=== PATIENT | male | born 1945 | race Caucasian/White ===

== ENCOUNTER 2021-07-16 09:12 | Outpatient (CLI) | payer MEDICARE | END 2021-07-16 09:13 | disposition critical access hospital (66) | LOC: EMS 09:12 | DX: R40.0 Somnolence (principal); R41.0 Disorientation, unspecified; I48.91 Unspecified atrial fibrillation | CPT/HCPCS: A0425; A0429 ==

== ENCOUNTER 2021-07-16 09:29 | Emergency (ER) | payer MEDICARE ==
[2021-07-16 10:27] LABS: BASOPHILS % (AUTO) 0.2 %; EOSINOPHILS % (AUTO) 0.1 %; HCT - HEMATOCRIT 48.1 % (42.0-52.0); HGB - HEMOGLOBIN 16.4 g/dL (14.0-18.0); LYMPHOCYTES # (AUTO) 0.6 10^3/uL (1.5-3.5); LYMPHOCYTES % (AUTO) 3.4 %; MEAN CORPUSCULAR HGB CONC 34.1 g/dL (32.0-36.0); MEAN CORPUSCULAR VOLUME 93.8 fL (80.0-94.0); MEAN PLATELET VOLUME 12.6 fL (7.4-11.4); MONOCYTES # (AUTO) 1.9 10^3/uL (0.0-1.0); MONOCYTES % (AUTO) 10.9 %; NEUTROPHILS # (AUTO) 14.9 10^3/uL (1.5-6.6); NEUTROPHILS % (AUTO) 84.9 %; PLT - PLATELET COUNT 128 10^3/uL (130-450); RED BLOOD COUNT 5.13 10^6/uL (4.70-6.10); RED CELL DISTRIBUTION WIDTH 12.9 % (12.0-15.0); WHITE BLOOD COUNT 17.6 x10^3/uL (4.8-10.8)
[2021-07-16 10:29] LABS: SLIDE REVIEW? Indicated
--- NOTE | 2021-07-16 10:33 | ED Physician Documentation ---
History of Present Illness - Stated complaint Stated Complaint: FEELING SICK - Chief complaint Chief Complaint: General - History obtained from History obtained from: Patient, EMS - History of Present Illness Pain level max: 0 Pain level now: 0 - Additonal information Additional information: Patient is a 76-year-old male who states that he has no complaints and does not know why he is in the emergency department. EMS states that the family states that he was weaker than usual today and had difficulty standing up. They brought him in for evaluation. Patient does have dementia per family. No other history is available at this time. Review of Systems Unable to obtain: Dementia PD PAST MEDICAL HISTORY - Past Medical History Past Medical History: Yes Neuro: Dementia - Present Medications Home Medications: Ambulatory Orders Medication Instructions Recorded Confirmed Apixaban [Eliquis] 1 tab PO DAILY 07/16/21 07/16/21 Calcium Citrate/Vitamin D3 1 tab PO DAILY 07/16/21 07/16/21 [Calcium Cit 200 mg-D3 125 Unit] Furosemide [Lasix] 1 tab PO DAILY 07/16/21 07/16/21 Garlic 1 tab PO DAILY 07/16/21 07/16/21 Glucos Sul 2Kcl/MSM/Chond/C/Mn 1 cap PO DAILY 07/16/21 07/16/21 [Glucosamine Chondroitin Cap] Lecithin 1 pkg PO DAILY 07/16/21 07/16/21 Magnesium 1 tab PO DAILY 07/16/21 07/16/21 Metoprolol Tartrate [Lopressor] 1 tab PO DAILY 07/16/21 07/16/21 Potassium Chloride [Micro-K] 1 cap PO DAILY 07/16/21 07/16/21 Selenium [Selenious Acid] 1 vial PO DAILY 07/16/21 07/16/21 cephALEXin [Keflex] 500 mg PO Q6H #20 cap 07/16/21 flaxseed oiL [Flaxseed Oil] 1 cap PO DAILY 07/16/21 07/16/21 - Allergies Allergies/Adverse Reactions: Allergies Allergy/AdvReac Type Severity Reaction Status Date / Time Unable to Assess Allergy Verified 07/16/21 09:52 - Living Situation Living Situation: reports: With family Living Arrangement: reports: At home - Social History Does the pt smoke?: No Does the pt have substance abuse?: No PD ED PE NORMAL - Vitals Vital signs reviewed: Yes - General General: No acute distress, Well developed/nourished, Other (Alert, pleasant. Confused) - HEENT HEENT: Moist mucous membranes - Neck Neck: Supple, no meningeal sign - Cardiac Cardiac: RRR - Respiratory Respiratory: No respiratory distress, Clear bilaterally - Abdomen Abdomen: Soft, Non tender, Non distended - Back Back: No CVA TTP, No spinal TTP - Derm Derm: Warm and dry - Extremities Extremities: No edema, No calf tenderness / cord - Neuro Neuro: Other (alert) Results - Vitals Vitals: Vital Signs - 24 hr 07/16/21 07/16/21 07/16/21 09:46 11:45 13:28 Temperature 37.2 C Heart Rate 110 H 86 104 H Respiratory 17 20 18 Rate Blood Pressure 158/102 H 152/101 H 147/92 H O2 Saturation 98 98 96 07/16/21 15:07 Temperature Heart Rate 91 Respiratory 16 Rate Blood Pressure 144/95 H O2 Saturation 97 Oxygen O2 Source Room air - EKG (time done) 1100 Rate: Rate (enter#) (98) Rhythm: Atrial fibrillation Lejunior: Normal QRS: Normal Ischemia: Non specific changes - Labs Labs: Laboratory Tests 07/16/21 07/16/21 07/16/21 10:18 10:18 10:18 WBC 17.6 H RBC 5.13 Hgb 16.4 Hct 48.1 MCV 93.8 MCH 32.0 H MCHC 34.1 RDW 12.9 Plt Count 128 L MPV 12.6 H Neut # (Auto) 14.9 H Lymph # (Auto) 0.[address] [place] # (Auto) 1.9 H Eos # (Auto) 0.0 Baso # (Auto) 0.0 Absolute Nucleated RBC 0.00 Band Neuts % (Manual) Not Reportable Abnorm Lymph % (Manual) Not Reportable Nucleated RBC % 0.0 Neutrophils # (Manual) Not Reportable Lymphocytes # (Manual) Not Reportable Monocytes # (Manual) Not Reportable Eosinophils # (Manual) Not Reportable Basophils # (Manual) Not Reportable Differential Comment MANUAL=AUTO DIFF Manual Slide Review Indicated WBC Morphology NORMAL APPEARANCE Platelet Estimate DECREASED (<130,000) Platelet Morphology NORMAL APPEARANCE RBC Morph Micro Appear NORMAL APPEARANCE Sodium 137 Potassium 3.7 Chloride 103 Carbon Dioxide 25 Anion Gap 9.0 BUN 16 Creatinine 0.9 Estimated GFR (MDRD) 82 L Glucose 114 H Lactic Acid Calcium 9.2 Total Bilirubin 1.8 H AST 18 ALT 23 Alkaline Phosphatase 73 Troponin I High Sens Total Protein 7.6 Albumin 3.9 Globulin 3.7 Albumin/Globulin Ratio 1.1 Lipase 19 L TSH 1.36 Urine Color Urine Clarity Urine pH Ur Specific Surveyor Urine Protein Urine Glucose (UA) Urine Ketones Urine Occult Blood Urine Nitrite Urine Bilirubin Urine Urobilinogen Ur Leukocyte Esterase Urine RBC Urine WBC Ur Squamous Epith Cells Urine Bacteria Urine Mucus Ur Microscopic Review Urine Culture Comments Nasal Adenovirus (PCR) Nasal B. parapertussis DNA (PCR) Nasal Coronavir 229E PCR Nasal Coronavir HKU1 PCR Nasal Coronavir NL63 PCR Nasal Coronavir OC43 PCR Nasal Enterovir/Rhinovir PCR Nasal Influenza B PCR Nasal Influenza A PCR Nasal Parainfluen 1 PCR Nasal Parainfluen 2 PCR Nasal Parainfluen 3 PCR Nasal Parainfluen 4 PCR Nasal RSV (PCR) Nasal B.pertussis DNA PCR Nasal C.pneumoniae (PCR) Yobani Human Metapneumo PCR Nasal M.pneumoniae (PCR) Nasal SARS-CoV-2 (PCR) Salicylates < 6.0 Urine Opiates Screen Ur Oxycodone Screen Urine Methadone Screen Ur Propoxyphene Screen Acetaminophen < 10 L Ur Barbiturates Screen Ur Tricyclics Screen Ur Phencyclidine Scrn Ur Amphetamine Screen U Methamphetamines Scrn U Benzodiazepines Scrn Urine Cocaine Screen U Cannabinoids Screen Ethyl Alcohol < 5.0 07/16/21 07/16/21 07/16/21 10:18 11:29 11:50 WBC RBC Hgb Hct MCV MCH MCHC RDW Plt Count MPV Neut # (Auto) Lymph # (Auto) [place] # (Auto) Eos # (Auto) Baso # (Auto) Absolute Nucleated RBC Band Neuts % (Manual) Abnorm Lymph % (Manual) Nucleated RBC % Neutrophils # (Manual) Lymphocytes # (Manual) Monocytes # (Manual) Eosinophils # (Manual) Basophils # (Manual) Differential Comment Manual Slide Review WBC Morphology Platelet Estimate Platelet Morphology RBC Morph Micro Appear Sodium Potassium Chloride Carbon Dioxide Anion Gap BUN Creatinine Estimated GFR (MDRD) Glucose Lactic Acid 1.1 Calcium Total Bilirubin AST ALT Alkaline Phosphatase Troponin I High Sens 9.8 Total Protein Albumin Globulin Albumin/Globulin Ratio Lipase TSH Urine Color Urine Clarity Urine pH Ur Specific Surveyor Urine Protein Urine Glucose (UA) Urine Ketones Urine Occult Blood Urine Nitrite Urine Bilirubin Urine Urobilinogen Ur Leukocyte Esterase Urine RBC Urine WBC Ur Squamous Epith Cells Urine Bacteria Urine Mucus Ur Microscopic Review Urine Culture Comments Nasal Adenovirus (PCR) NOT DETECTED Nasal B. parapertussis DNA (PCR) NOT DETECTED Nasal Coronavir 229E PCR NOT DETECTED Nasal Coronavir HKU1 PCR NOT DETECTED Nasal Coronavir NL63 PCR NOT DETECTED Nasal Coronavir OC43 PCR NOT DETECTED Nasal Enterovir/Rhinovir PCR NOT DETECTED Nasal Influenza B PCR NOT DETECTED Nasal Influenza A PCR NOT DETECTED Nasal Parainfluen 1 PCR NOT DETECTED Nasal Parainfluen 2 PCR NOT DETECTED Nasal Parainfluen 3 PCR NOT DETECTED Nasal Parainfluen 4 PCR NOT DETECTED Nasal RSV (PCR) NOT DETECTED Nasal B.pertussis DNA PCR NOT DETECTED Nasal C.pneumoniae (PCR) NOT DETECTED Yobani Human Metapneumo PCR NOT DETECTED Nasal M.pneumoniae (PCR) NOT DETECTED Nasal SARS-CoV-2 (PCR) NOT DETECTED Salicylates Urine Opiates Screen Ur Oxycodone Screen Urine Methadone Screen Ur Propoxyphene Screen Acetaminophen Ur Barbiturates Screen Ur Tricyclics Screen Ur Phencyclidine Scrn Ur Amphetamine Screen U Methamphetamines Scrn U Benzodiazepines Scrn Urine Cocaine Screen U Cannabinoids Screen Ethyl Alcohol 07/16/21 12:02 WBC RBC Hgb Hct MCV MCH MCHC RDW Plt Count MPV Neut # (Auto) Lymph # (Auto) [place] # (Auto) Eos # (Auto) Baso # (Auto) Absolute Nucleated RBC Band Neuts % (Manual) Abnorm Lymph % (Manual) Nucleated RBC % Neutrophils # (Manual) Lymphocytes # (Manual) Monocytes # (Manual) Eosinophils # (Manual) Basophils # (Manual) Differential Comment Manual Slide Review WBC Morphology Platelet Estimate Platelet Morphology RBC Morph Micro Appear Sodium Potassium Chloride Carbon Dioxide Anion Gap BUN Creatinine Estimated GFR (MDRD) Glucose Lactic Acid Calcium Total Bilirubin AST ALT Alkaline Phosphatase Troponin I High Sens Total Protein Albumin Globulin Albumin/Globulin Ratio Lipase TSH Urine Color YELLOW Urine Clarity CLEAR Urine pH 6.5 Ur Specific Surveyor 1.020 Urine Protein NEGATIVE Urine Glucose (UA) NEGATIVE Urine Ketones TRACE Urine Occult Blood SMALL H Urine Nitrite NEGATIVE Urine Bilirubin NEGATIVE Urine Urobilinogen 1 (NORMAL) Ur Leukocyte Esterase NEGATIVE Urine RBC 0-5 Urine WBC 0-3 Ur Squamous Epith Cells RARE Squamous Urine Bacteria Rare Urine Mucus Few Strands Ur Microscopic Review INDICATED Urine Culture Comments NOT INDICATED Nasal Adenovirus (PCR) Nasal B. parapertussis DNA (PCR) Nasal Coronavir 229E PCR Nasal Coronavir HKU1 PCR Nasal Coronavir NL63 PCR Nasal Coronavir OC43 PCR Nasal Enterovir/Rhinovir PCR Nasal Influenza B PCR Nasal Influenza A PCR Nasal Parainfluen 1 PCR Nasal Parainfluen 2 PCR Nasal Parainfluen 3 PCR Nasal Parainfluen 4 PCR Nasal RSV (PCR) Nasal B.pertussis DNA PCR Nasal C.pneumoniae (PCR) Yobani Human Metapneumo PCR Nasal M.pneumoniae (PCR) Nasal SARS-CoV-2 (PCR) Salicylates Urine Opiates Screen NEGATIVE Ur Oxycodone Screen NEGATIVE Urine Methadone Screen NEGATIVE Ur Propoxyphene Screen NEGATIVE Acetaminophen Ur Barbiturates Screen NEGATIVE Ur Tricyclics Screen NEGATIVE Ur Phencyclidine Scrn NEGATIVE Ur Amphetamine Screen NEGATIVE U Methamphetamines Scrn NEGATIVE U Benzodiazepines Scrn NEGATIVE Urine Cocaine Screen NEGATIVE U Cannabinoids Screen NEGATIVE Ethyl Alcohol - Rads (name of study) head CT Radiology: Final report received, EMP read contemporaneously, See rad report (No acute abnormality) cxr Radiology: Final report received, EMP read contemporaneously, See rad report (Mild or early pneumonia each lung base, without pleural effusion or central mass. ) CT abd/pelvis Radiology: Final report received, EMP read contemporaneously, See rad report (no acute abnormality) PD MEDICAL DECISION MAKING - ED course Complexity details: reviewed results, re-evaluated patient, considered differential, d/w patient, d/w family ED course: 76-year-old male with a UTI. We will treat for this. He does have dementia. He is ambulating without difficulty here in the emergency department. Utilizing a walker. No acute findings on laboratory testing other than mild thrombocytopenia and a slight leukocytosis. No evidence of sepsis. No acute findings on chest x-ray, head CT or CT abdomen pelvis. Possible early pneumonia on chest x-ray, though was recently apparently treated for this and CT does not appear consistent with pneumonia. Clinically he is not coughing or hypoxic. More likely that his symptoms are secondary to UTI. Patient and family counseled regarding signs and symptoms for which I believe and urgent re- evaluation would be necessary. Patient with good understanding of and agreement to plan and is comfortable going home at this time This document was made in part using voice recognition software. While efforts are made to proofread this document, sound alike and grammatical errors may occur. Departure - Departure Disposition: Home, Self Care Clinical Impression: UTI (urinary tract infection) Qualifiers: Urinary tract infection type: acute cystitis Hematuria presence: without hematuria Qualified Code(s): N30.00 - Acute cystitis without hematuria Condition: Good Instructions: ED UTI Cystitis Male Follow-Up: your,doctor in 1 week [Other] Prescriptions: cephALEXin [Keflex] 500 mg PO Q6H #20 cap Comments: Take all antibiotics until gone. Follow up with your doctor for further care. Discharge Date/Time: 07/16/21 15:30
[2021-07-16 10:43] LABS: ACETAMINOPHEN < 10 ug/mL (10-30); ALBUMIN 3.9 g/dL (3.2-5.5); ALBUMIN/GLOBULIN RATIO 1.1 (1.0-2.2); ALKALINE PHOSPHATASE 73 IU/L (42-121); ALT ALANINE AMINOTRANSFERASE 23 IU/L (10-60); AST ASPARTATE AMINOTRANSFERASE 18 IU/L (10-42); BILIRUBIN,TOTAL 1.8 mg/dL (0.2-1.0); BUN - BLOOD UREA NITROGEN 16 mg/dL (6-20); CALCIUM 9.2 mg/dL (8.5-10.3); CARBON DIOXIDE - CO2 25 mmol/L (21-32); CHLORIDE 103 mmol/L (101-111); CREATININE 0.9 mg/dL (0.6-1.2); ETOH - ETHANOL < 5.0 mg/dL; GFR - MDRD 82 (>89); GLUCOSE 114 mg/dL (70-100); LIPASE 19 U/L (22-51); POTASSIUM 3.7 mmol/L (3.5-5.0); SALICYLATE < 6.0 mg/dL; SODIUM 137 mmol/L (135-145); TOTAL PROTEIN 7.6 g/dL (6.7-8.2)
--- NOTE | 2021-07-16 10:46 | CT Report ---
PROCEDURE: HEAD WO INDICATIONS: altered mental status, pt on eliquis TECHNIQUE: Noncontrast 4.5 mm thick angled axial sections acquired from the foramen magnum to the vertex. For r adiation dose reduction, the following was used: automated exposure control, adjustment of mA and/or kV according to patient size. COMPARISON: None. FINDINGS: Image quality: There is streak artifact seen through the skull base. CSF spaces: Basal cisterns are patent. No extra-axial fluid collections. Ventricles are normal in size and shape. Brain: No midline shift. No intracranial masses or hemorrhage. Edwards-white matter interface is norm al. Age-appropriate brain parenchymal volume loss and chronic small vessel ischemic change can be se en. Skull and face: Calvarium and visualized facial bones are intact, without suspicious lesions. Sinuses: Visualized sinuses and mastoids are clear. IMPRESSION: No intracranial hemorrhage is seen. No significant intracranial abnormality is seen. Age-appropriate brain parenchymal volume loss and chronic small vessel ischemic change can be seen. Reviewed by: Santosh Mcelroy MD on 07/16/2021 9:44 AM [facility] Approved by: Santosh Mcelroy MD on 07/16/2021 9:44 AM [facility] Station ID: [id number]
[2021-07-16 11:10] LABS: DIFFERENTIAL COMMENT MANUAL=AUTO DIFF; PLATELET ESTIMATE, MANUAL DECREASED (<130,000) (NORMAL); PLATELET MORPHOLOGY NORMAL APPEARANCE (NORMAL); RBC MORPHOLOGY (MULTIPLE) NORMAL APPEARANCE (NORMAL); WBC MORPHOLOGY (MULTIPLE) NORMAL APPEARANCE (NORMAL)
[2021-07-16] MEDS ORDERED: SODIUM CHLORIDE 0.9% 1,000 ML IV STA (11:19)
--- NOTE | 2021-07-16 11:41 | XRAY Report ---
PROCEDURE: Chest 1 View X-Ray INDICATIONS: leukocytosis, altered TECHNIQUE: One view of the chest was acquired. COMPARISON: None FINDINGS: Surgical changes and devices: None. Lungs and pleura: No pleural effusions or pneumothorax. Lungs are abnormal with what appears to be a mild pneumonia pattern at the right lung base and there is also retrocardiac left lower lobe mild o r early pneumonia.. Mediastinum: Mediastinal contours appear normal. Heart size is normal. Bones and chest wall: No suspicious bony lesions. Overlying soft tissues appear unremarkable. IMPRESSION: Mild or early pneumonia each lung base, without pleural effusion or central mass. Reviewed by: Gordon Steinberg MD on 07/16/2021 11:40 AM PDT Approved by: Gordon Steinberg MD on 07/16/2021 11:40 AM PDT Station ID: [id number]
[2021-07-16 12:10] LABS: MUDS CUTOFF CONCENTRATIONS CUTOFF CONC BELOW:
[2021-07-16 12:12] LABS: BILIRUBIN,URINE NEGATIVE (NEGATIVE); GLUCOSE, URINE (UA) NEGATIVE (NEGATIVE); KETONES,URINE (UA) TRACE mg/dL (NEGATIVE); LEUKOCYTE ESTERASE, URINE NEGATIVE (NEGATIVE); NITRITE,URINE NEGATIVE (NEGATIVE); OCCULT BLOOD,URINE SMALL (NEGATIVE); PH,URINE 6.5 PH (5.0-7.5); PROTEIN,URINE NEGATIVE (NEGATIVE); UROBILINOGEN,URINE 1 (NORMAL) E.U./dL (NORMAL)
[2021-07-16 12:28] LABS: AMPHETAMINE SCREEN,URINE NEGATIVE (NEGATIVE); BARBITURATE SCREEN,UR NEGATIVE (NEGATIVE); BENZODIAZEPINES SCREEN, URINE NEGATIVE (NEGATIVE); COCAINE SCREEN URINE NEGATIVE (NEGATIVE); METHADONE SCREEN, URINE NEGATIVE (NEGATIVE); METHAMPHETAMINES SCREEN, URINE NEGATIVE (NEGATIVE); OPIATE SCREEN, URINE NEGATIVE (NEGATIVE); OXYCODONE SCREEN, URINE NEGATIVE (NEGATIVE); PROPOXYPHENE SCREEN, URINE NEGATIVE (NEGATIVE); THC CANNABINOID SCREEN, URINE NEGATIVE (NEGATIVE); TRICYCLIC ANTIDEPRESSANT,URINE NEGATIVE (NEGATIVE)
[2021-07-16 12:34] LABS: CLARITY,URINE CLEAR (CLEAR); RBC,URINE 0-5 /HPF (0-5); WBC,URINE 0-3 /HPF (0-3)
[2021-07-16 12:35] LABS: BACTERIA,URINE Rare /HPF (None Seen); MUCUS,URINE Few Strands; SQUAMOUS EPITHELIAL CELL,UR RARE Squamous (<= Few)
[2021-07-16] MEDS ORDERED: IOPAMIDOL-300 50 ML VIAL ONE (12:43)
[2021-07-16 12:53] LABS: B. PARAPERTUSSIS- RESP PCR PAN NOT DETECTED; B. PERTUSSIS- RESP PCR PANEL NOT DETECTED; C. PNEUMONIAE- RESP PCR PANEL NOT DETECTED; CORONAVIRUS 229E-RESP PCR NOT DETECTED; CORONAVIRUS HKU1-RESP PCR NOT DETECTED; CORONAVIRUS NL63-RESP PCR NOT DETECTED; CORONAVIRUS OC43-RESP PCR NOT DETECTED; HUMAN METAPNEUMOVIRUS NOT DETECTED; INFLUENZA A- RESP PCR PANEL NOT DETECTED; INFLUENZA B - RESP PCR PANEL NOT DETECTED; M. PNEUMONIAE- RESP PCR PANEL NOT DETECTED; PARAINFLUENZA VIRUS 1 NOT DETECTED; PARAINFLUENZA VIRUS 2 NOT DETECTED; PARAINFLUENZA VIRUS 3 NOT DETECTED; PARAINFLUENZA VIRUS 4 NOT DETECTED; RHINOVIRUS/ENTEROVIRUS NOT DETECTED; RSV- RESP PCR PANEL NOT DETECTED; SARS-CoV-2 -RESP PCR PANEL NOT DETECTED
[2021-07-16] MEDS ORDERED: IOPAMIDOL-300 50 ML VIAL IVP ONE (13:07)
--- NOTE | 2021-07-16 13:32 | CT Report ---
PROCEDURE: Abdomen/Pelvis W INDICATIONS: leukocytosis, altered, UTI CONTRAST: IV CONTRAST: Optiray 320 ml: 100 PO CONTRAST: *NO PO CONTRAST TECHNIQUE: After the administration of nonionic contrast, 5 mm thick sections acquired from the diaphragms to th e symphysis. 5 mm thick coronal and sagittal reformats were acquired. For radiation dose reduction, the following was used: automated exposure control, adjustment of mA and/or kV according to patient size. COMPARISON: None. FINDINGS: Image quality: Excellent. ABDOMEN: Lung bases: Lung bases are clear except for mild dependent atelectasis. Heart size is normal. Solid organs: Liver and spleen are normal in size and enhancement except for the presence of several calcifications with a somewhat tubular morphology above the gallbladder fossa. Gallbladder appears normal Biliary system is non dilated. Pancreas enhances normally. No adrenal nodules. Kidneys dem onstrate normal size and enhancement, without hydronephrosis. There is a punctate 2 mm calculus at th e lower third collecting system on the right, nonobstructive, and a larger anterior 5 x 6 mm calculus that also is nonobstructive at the mid kidney on the left. Slightly more superiorly there is a 4 mm calculus that is nonobstructive at the left mid kidney. No ureteral calculus is found. Peritoneum and bowel: Bowel loops demonstrate normal wall thickness and caliber. No free fluid or a ir. Nodes and vessels: No retroperitoneal or mesenteric adenopathy by size criteria. Aorta and inferior vena cava are normal in size. Miscellaneous: No ventral hernias. PELVIS: Genitourinary: Bladder wall thickness is normal. Miscellaneous: No inguinal hernias on the right or adenopathy bilaterally but there is a left-sided moderately large inguinal hernia containing colonic bowel, showing no sign of incarceration or chaz ulation. Dominant. Asymmetric hydroceles bilaterally, larger on the right measuring up to almost 10 cm in maximal dimension. Bones: No suspicious bony lesions. No vertebral body compression fractures. IMPRESSION: A definite source of current leukocytosis is not seen. There are, however, 3 separate ur inary tract stones involving the kidneys, 2 on the left and one on the right. No ureteral calculus or perinephric edema is associated. Incidental note is made of a large right hydrocele measuring up to 10 cm in diameter. Elective follow -up of this finding may be warranted depending on the clinical status. Moderately large bowel containing left inguinal hernia. No sign of incarceration or strangulation clem e. The bowel involved appears to represent a portion of the left colon. Reviewed by: Gordon Steinberg MD on 07/16/2021 1:30 PM PDT Approved by: Gordon Steinberg MD on 07/16/2021 1:30 PM PDT Station ID: [id number]
[2021-07-16] MEDS ORDERED: cefTRIAXone 1 GM VIAL IVP STA (14:06)
[2021-07-16 15:07] VITALS: BP 144/95
== END 2021-07-16 15:30 | disposition home or self-care (01) ==
LOC: EDUNIT# → ED 09:29
DX: N30.00 Acute cystitis without hematuria (principal); D69.6 Thrombocytopenia, unspecified; F03.90 Unspecified dementia, unspecified severity, without behavioral disturbance, psychotic disturbance, mood disturbance, and anxiety; I48.91 Unspecified atrial fibrillation; Z79.01 Long term (current) use of anticoagulants; Z20.822 Contact with and (suspected) exposure to COVID-19; K40.90 Unilateral inguinal hernia, without obstruction or gangrene, not specified as recurrent; N43.3 Hydrocele, unspecified
CPT/HCPCS: 36415; 51701; 70450; 71045; 74177; 80053; 80306; 80307; 81001; 83605; 83690; 84443; 84484; 85025; 87040; 87631; 93005; 96361; 96374; 99283; 99284; G0480; Q9967; 0202U; 80320; 80329; 81003; 87086

== ENCOUNTER 2021-07-24 10:31 | Outpatient (CLI) | payer MEDICARE, OTHER ==
[2021-07-24 15:04] LABS: BASOPHILS % (AUTO) 0.6 %; EOSINOPHILS # (AUTO) 0.3 10^3/uL (0.0-0.7); EOSINOPHILS % (AUTO) 3.7 %; HCT - HEMATOCRIT 51.1 % (42.0-52.0); HGB - HEMOGLOBIN 16.6 g/dL (14.0-18.0); LYMPHOCYTES # (AUTO) 0.8 10^3/uL (1.5-3.5); LYMPHOCYTES % (AUTO) 11.5 %; MEAN CORPUSCULAR HEMOGLOBIN 31.3 pg (27.0-31.0); MEAN CORPUSCULAR HGB CONC 32.5 g/dL (32.0-36.0); MEAN CORPUSCULAR VOLUME 96.2 fL (80.0-94.0); MEAN PLATELET VOLUME 12.3 fL (7.4-11.4); MONOCYTES % (AUTO) 14.8 %; NEUTROPHILS # (AUTO) 4.8 10^3/uL (1.5-6.6); NEUTROPHILS % (AUTO) 68.5 %; PLT - PLATELET COUNT 194 10^3/uL (130-450); RED BLOOD COUNT 5.31 10^6/uL (4.70-6.10); RED CELL DISTRIBUTION WIDTH 12.8 % (12.0-15.0); WHITE BLOOD COUNT 7.1 x10^3/uL (4.8-10.8)
[2021-07-24 15:23] LABS: ALBUMIN/GLOBULIN RATIO 1.1 (1.0-2.2); ALKALINE PHOSPHATASE 71 IU/L (42-121); ALT ALANINE AMINOTRANSFERASE 38 IU/L (10-60); AST ASPARTATE AMINOTRANSFERASE 26 IU/L (10-42); BUN - BLOOD UREA NITROGEN 20 mg/dL (6-20); CALCIUM 9.2 mg/dL (8.5-10.3); CARBON DIOXIDE - CO2 29 mmol/L (21-32); CHLORIDE 103 mmol/L (101-111); CHOL/HDL RATIO 4.1 (<5.0); CHOLESTEROL 152 mg/dL; GFR - MDRD 72 (>89); GLUCOSE 82 mg/dL (70-100); HDL CHOLESTEROL 37 mg/dL; LDL CHOLESTEROL,CALCULATED 98 mg/dL; LDL/HDL RATIO 2.6 (<3.6); SODIUM 141 mmol/L (135-145); TOTAL PROTEIN 7.7 g/dL (6.7-8.2); TRIGLYCERIDES 84 mg/dL; VLDL CHOLESTEROL 17 mg/dL
[2021-07-24 15:33] LABS: THYROID STIMULATING HORMONE 3.03 uIU/mL (0.34-5.60)
== END 2021-07-24 10:32 | disposition home or self-care (01) ==
LOC: LAB.S 10:31
PROVIDERS: ATTEND Nurse Practitioner Family
DX: I48.91 Unspecified atrial fibrillation (principal); I10 Essential (primary) hypertension
CPT/HCPCS: 36415; 80053; 80061; 82607; 83721; 84443; 85025

== ENCOUNTER 2021-08-29 11:57 | Outpatient (CLI) | payer MEDICARE, OTHER | END 2021-08-29 11:58 | disposition home or self-care (01) | LOC: DI 11:57 | PROVIDERS: ATTEND Nurse Practitioner Family | DX: I48.91 Unspecified atrial fibrillation (principal); I34.0 Nonrheumatic mitral (valve) insufficiency; I51.7 Cardiomegaly | CPT/HCPCS: 93306 ==

== ENCOUNTER 2022-03-11 15:47 | Outpatient (CLI) | payer MEDICARE, OTHER ==
--- NOTE | 2022-03-11 16:52 | XRAY Report ---
PROCEDURE: Chest 2 View X-Ray INDICATIONS: PNEUMONIA TECHNIQUE: 2 view(s) of the chest. COMPARISON: 07/16/2021. FINDINGS: Surgical changes and devices: None. Lungs and pleura: No pleural effusions or pneumothorax. Patchy opacities noted in the left lung base concerning for pneumonia. Mediastinum: Mediastinal contours are normal. Heart size is normal. Bones and chest wall: No suspicious bony abnormalities. Soft tissues appear unremarkable. IMPRESSION: Left lower lobe pneumonia. Reviewed by: Rox Mac MD, PhD on 03/11/2022 4:51 PM PDT Approved by: Rox Mac MD, PhD on 03/11/2022 4:51 PM PDT Station ID: [id number]
== END 2022-03-11 15:48 | disposition home or self-care (01) ==
LOC: DI.S 15:47
PROVIDERS: ATTEND Nurse Practitioner Family
DX: J18.9 Pneumonia, unspecified organism (principal)
CPT/HCPCS: 36415; 85025

== ENCOUNTER 2022-03-11 15:49 | Outpatient (CLI) | payer MEDICARE, OTHER ==
[2022-03-11 19:59] LABS: BASOPHILS # (AUTO) 0.1 10^3/uL (0.0-0.1); BASOPHILS % (AUTO) 0.5 %; EOSINOPHILS # (AUTO) 0.3 10^3/uL (0.0-0.7); HCT - HEMATOCRIT 47.7 % (42.0-52.0); HGB - HEMOGLOBIN 15.9 g/dL (14.0-18.0); LYMPHOCYTES # (AUTO) 0.8 10^3/uL (1.5-3.5); LYMPHOCYTES % (AUTO) 9.1 %; MEAN CORPUSCULAR HEMOGLOBIN 31.5 pg (27.0-31.0); MEAN CORPUSCULAR HGB CONC 33.3 g/dL (32.0-36.0); MEAN CORPUSCULAR VOLUME 94.6 fL (80.0-94.0); MEAN PLATELET VOLUME 13.7 fL (7.4-11.4); MONOCYTES % (AUTO) 10.7 %; NEUTROPHILS # (AUTO) 6.9 10^3/uL (1.5-6.6); NEUTROPHILS % (AUTO) 75.9 %; PLT - PLATELET COUNT 209 10^3/uL (130-450); RED BLOOD COUNT 5.04 10^6/uL (4.70-6.10); RED CELL DISTRIBUTION WIDTH 13.1 % (12.0-15.0); WHITE BLOOD COUNT 9.1 x10^3/uL (4.8-10.8)
== END 2022-03-11 15:50 | disposition home or self-care (01) ==
LOC: LAB.S 15:49
PROVIDERS: ATTEND Nurse Practitioner Family
DX: J18.9 Pneumonia, unspecified organism (principal)
CPT/HCPCS: 36415; 85025

== ENCOUNTER 2022-11-10 08:00 | Outpatient (CLI) | payer MEDICARE, OTHER | END 2022-11-10 23:59 | disposition home or self-care (01) | LOC: LAB.R 08:00 | PROVIDERS: ATTEND Nurse Practitioner Gerontology | DX: R82.79 Other abnormal findings on microbiological examination of urine (principal); L08.9 Local infection of the skin and subcutaneous tissue, unspecified | CPT/HCPCS: 87070; 87181; 87205 ==

== ENCOUNTER 2023-10-27 00:43 | Outpatient (CLI) | payer MEDICARE, OTHER | END 2023-10-27 00:44 | disposition critical access hospital (66) | LOC: EMS 00:43 | DX: R19.5 Other fecal abnormalities (principal); R41.82 Altered mental status, unspecified; R09.89 Other specified symptoms and signs involving the circulatory and respiratory systems; Z79.01 Long term (current) use of anticoagulants | CPT/HCPCS: A0425; A0429 ==

== ENCOUNTER 2023-10-27 00:58 | Inpatient (IN) | payer MEDICARE, OTHER ==
[2023-10-27 01:19] LABS: BASOPHILS % (AUTO) 0.2 %; HCT - HEMATOCRIT 44.1 % (42.0-52.0); HGB - HEMOGLOBIN 14.7 g/dL (14.0-18.0); LYMPHOCYTES # (AUTO) 0.4 10^3/uL (1.5-3.5); LYMPHOCYTES % (AUTO) 1.9 %; MEAN CORPUSCULAR HEMOGLOBIN 31.1 pg (27.0-31.0); MEAN CORPUSCULAR HGB CONC 33.3 g/dL (32.0-36.0); MEAN CORPUSCULAR VOLUME 93.4 fL (80.0-94.0); MEAN PLATELET VOLUME 12.8 fL (7.4-11.4); MONOCYTES # (AUTO) 1.3 10^3/uL (0.0-1.0); MONOCYTES % (AUTO) 6.6 %; NEUTROPHILS # (AUTO) 17.6 10^3/uL (1.5-6.6); NEUTROPHILS % (AUTO) 90.9 %; PLT - PLATELET COUNT 199 10^3/uL (130-450); RED BLOOD COUNT 4.72 10^6/uL (4.70-6.10); RED CELL DISTRIBUTION WIDTH 13.7 % (12.0-15.0); WHITE BLOOD COUNT 19.4 x10^3/uL (4.8-10.8)
--- NOTE | 2023-10-27 01:30 | XRAY Report ---
PROCEDURE: Chest 1 View X-Ray INDICATIONS: cough TECHNIQUE: One view of the chest was acquired. COMPARISON: 03/11/2022 FINDINGS: Surgical changes and devices: None. Lungs and pleura: Streaky bibasilar opacities more pronounced on the left. No focal consolidation se en. No pneumothorax. No substantial pleural effusion. Mediastinum: Mediastinal contours appear stable. Heart size is normal. Bones and chest wall: No suspicious bony lesions. Overlying soft tissues appear unremarkable. IMPRESSION: Streaky bibasilar opacities more pronounced on the left. Findings likely represent atelectasis. No de nse consolidation seen. Otherwise, no acute cardiopulmonary abnormalities. Reviewed by: Blane Mccormick MD on 10/27/2023 1:29 AM [facility] Approved by: Blane Mccormick MD on 10/27/2023 1:29 AM [facility] Station ID: [id number]
[2023-10-27 01:52] LABS: INR 3.1 (0.8-1.2); PT - PROTHROMBIN TIME 31.5 secs (9.9-12.6)
[2023-10-27 01:53] LABS: ABG PCO2 44 mmHg (34-45); ABG PH 7.52 (7.35-7.45); ABG PO2 49 mmHg (80-100)
[2023-10-27 01:54] LABS: ABG BASE EXCESS 10.4 mmol/L (-2.0-3.0); ABG HCO3 34.6 mmol/L (22.0-26.0); ALLEN TEST POSITIVE
[2023-10-27 01:56] LABS: ABG OXYGEN SATURATION 87 % (94-98)
[2023-10-27] MEDS ORDERED: CLINDAMYCIN 600 MG/50 ML 50 ML IV ONE (02:01)
[2023-10-27 02:09] LABS: ALBUMIN 4.3 g/dL (3.2-5.5)
[2023-10-27 02:10] LABS: GASTROCCULT POSITIVE (Negative)
[2023-10-27 02:12] LABS: BILIRUBIN,TOTAL 1.1 mg/dL (0.2-1.0); CALCIUM 9.8 mg/dL (8.5-10.3); CREATININE 2.1 mg/dL (0.6-1.3); POTASSIUM 2.1 mmol/L (3.5-4.5); TOTAL PROTEIN 8.8 g/dL (6.4-8.9)
[2023-10-27] MEDS ORDERED: SODIUM CHLORIDE 0.9% 1,000 ML IV STA (02:17)
[2023-10-27] MEDS ORDERED: POTASSIUM CHLOR 10 MEQ/100 ML 10 MEQ/100 ML BAG IV STA (02:17)
[2023-10-27 02:18] LABS: B. PARAPERTUSSIS- RESP PCR PAN NOT DETECTED; B. PERTUSSIS- RESP PCR PANEL NOT DETECTED; C. PNEUMONIAE- RESP PCR PANEL NOT DETECTED; CORONAVIRUS 229E-RESP PCR NOT DETECTED; CORONAVIRUS HKU1-RESP PCR NOT DETECTED; CORONAVIRUS NL63-RESP PCR NOT DETECTED; CORONAVIRUS OC43-RESP PCR NOT DETECTED; HUMAN METAPNEUMOVIRUS NOT DETECTED; INFLUENZA A- RESP PCR PANEL NOT DETECTED; INFLUENZA B - RESP PCR PANEL NOT DETECTED; M. PNEUMONIAE- RESP PCR PANEL NOT DETECTED; PARAINFLUENZA VIRUS 1 NOT DETECTED; PARAINFLUENZA VIRUS 2 NOT DETECTED; PARAINFLUENZA VIRUS 3 NOT DETECTED; PARAINFLUENZA VIRUS 4 NOT DETECTED; RHINOVIRUS/ENTEROVIRUS NOT DETECTED; RSV- RESP PCR PANEL NOT DETECTED; SARS-CoV-2 -RESP PCR PANEL NOT DETECTED
--- NOTE | 2023-10-27 02:38 | ED Physician Documentation ---
History of Present Illness - Stated complaint Stated Complaint: GIB - Chief complaint Chief Complaint: General - History obtained from History obtained from: EMS - Additonal information Additional information: The patient is brought to the emergency department by EMS for chief complaint of "dark stools and low blood pressure". The medics report that the longterm staff noticed that the patient's stool seemed darker than usual and would that when they checked her blood pressure, his systolic was in the upper 70s. EMS states that the patient has been stable for them and that they have had a blood pressure in the 120s during the entire transport. Medics state that the shelter facility did not mention anything about the patient's breathing, but they have noticed that the patient seems to have a lot of upper airway secretions and that they could not keep his oxygen saturation above 91%. During transport, the patient has been continuously spitting out what looks like stomach contents, though he has not had any vomiting. The patient is unable to offer much information, as he has advanced dementia. He has come with an advanced directive form that states "DNR" with "comfort measures only", though it is reported that the family wanted the patient transported for further evaluation and is okay with the patient getting needed medications. PD PAST MEDICAL HISTORY - Past Medical History Cardiovascular: Hypertension, High cholesterol, Coronary artery disease, Atrial fibrillation Neuro: Dementia, CVA, Parkinson's - Present Medications Home Medications: Ambulatory Orders Medication Instructions Recorded Confirmed Apixaban [Eliquis] 1 tab PO DAILY 07/16/21 07/16/21 Calcium Citrate/Vitamin D3 1 tab PO DAILY 07/16/21 07/16/21 [Calcium Cit 200 mg-D3 125 Unit] Furosemide [Lasix] 1 tab PO DAILY 07/16/21 07/16/21 Garlic 1 tab PO DAILY 07/16/21 07/16/21 Glucos Sul 2Kcl/MSM/Chond/C/Mn 1 cap PO DAILY 07/16/21 07/16/21 [Glucosamine Chondroitin Cap] Lecithin 1 pkg PO DAILY 07/16/21 07/16/21 Magnesium 1 tab PO DAILY 07/16/21 07/16/21 Metoprolol Tartrate [Lopressor] 1 tab PO DAILY 07/16/21 07/16/21 Potassium Chloride [Micro-K] 1 cap PO DAILY 07/16/21 07/16/21 Selenium [Selenious Acid] 1 vial PO DAILY 07/16/21 07/16/21 cephALEXin [Keflex] 500 mg PO Q6H #20 cap 07/16/21 flaxseed oiL [Flaxseed Oil] 1 cap PO DAILY 07/16/21 07/16/21 Docusate Sodium 100Mg Capsule 100 mg PO DAILY 10/27/23 10/27/23 [Colace 100Mg Capsule] Dorzolamide/Timolol Ophth Soln 1 drops LEFTEYE DAILY 10/27/23 10/27/23 [Cosopt] Latanoprost 0.005% Ophth Drops 1 drops OPTH QPM 10/27/23 10/27/23 [Xalatan Ophth Drops] Potassium Chloride 20 meq PO DAILY 10/27/23 10/27/23 Rivaroxaban [Xarelto] 20 mg PO DAILY 10/27/23 10/27/23 Torsemide 20 mg PO BID 10/27/23 10/27/23 Triamcinolone 0.1% Cream [Kenalog 0.1 % TOP 1-2XD 10/27/23 10/27/23 0.1% Cream] metOLazone [Zaroxolyn] 2.5 mg PO DAILY 10/27/23 10/27/23 - Allergies Allergies/Adverse Reactions: Allergies Allergy/AdvReac Type Severity Reaction Status Date / Time No Known Drug Allergies Allergy Verified 10/27/23 01:31 - Social History Does the pt smoke?: No Smoking Status: Never smoker Does the pt drink ETOH?: No Does the pt have substance abuse?: No PD ED PE NORMAL - Vitals Vital signs reviewed: Yes - General General: No acute distress, Well developed/nourished, Other (Awake, answers simple questions.) - HEENT HEENT: Atraumatic, PERRL, EOMI, Moist mucous membranes - Neck Neck: Supple, no meningeal sign - Cardiac Cardiac: RRR, No murmur - Respiratory Respiratory: No respiratory distress, Other (Heavy upper airway sounds. Rales versus transmission of upper airway sounds into bilateral lung tristan diffusely.) - Abdomen Abdomen: Soft, Non tender, Non distended - Derm Derm: Normal color, Warm and dry, No rash - Extremities Extremities: No deformity, No edema - Neuro Neuro: Other (Awake, answers to his name.) - Psych Psych: Normal mood, Normal affect Results - Vitals Vitals: Vital Signs - 24 hr 10/27/23 10/27/23 10/27/23 01:08 01:20 02:22 Temperature 35.9 C L Heart Rate 98 93 98 Respiratory 29 H 32 H 29 H Rate Blood Pressure 121/102 H 129/83 H O2 Saturation 88 L 88 L If not protocol 4 5 : Oxygen Flow, liters/minute Oxygen O2 Source Nasal cannula - Labs Labs: Laboratory Tests 10/27/23 10/27/23 10/27/23 01:15 01:15 01:15 WBC 19.4 H RBC 4.72 Hgb 14.7 Hct 44.1 MCV 93.4 MCH 31.1 H MCHC 33.3 RDW 13.7 Plt Count 199 MPV 12.8 H Neut # (Auto) 17.6 H Lymph # (Auto) 0.4 L [place] # (Auto) 1.3 H Eos # (Auto) 0.0 Baso # (Auto) 0.0 Absolute Nucleated RBC 0.00 Nucleated RBC % 0.0 PT INR Bld Gas Analysis Time Sample Site ABG pH ABG pCO2 ABG pO2 ABG HCO3 ABG Total CO2 ABG O2 Saturation ABG Base Excess Huey Test O2 Delivery Device O2 Liters/Min FiO2 Sodium 136 Potassium 2.1 L* Chloride 85 L Carbon Dioxide 37 H Anion Gap 14.0 H BUN 79 H Creatinine 2.1 H Estimated GFR (MDRD) 31 L Glucose 174 H Calcium 9.8 Total Bilirubin 1.1 H AST 16 ALT 16 Alkaline Phosphatase 83 B-Natriuretic Peptide 70 Total Protein 8.8 Albumin 4.3 Globulin 4.5 H Albumin/Globulin Ratio 1.0 Lipase 19 Nasal Adenovirus (PCR) Nasal B. parapertussis DNA (PCR) Nasal Coronavir 229E PCR Nasal Coronavir HKU1 PCR Nasal Coronavir NL63 PCR Nasal Coronavir OC43 PCR Nasal Enterovir/Rhinovir PCR Nasal Influenza B PCR Nasal Influenza A PCR Nasal Parainfluen 1 PCR Nasal Parainfluen 2 PCR Nasal Parainfluen 3 PCR Nasal Parainfluen 4 PCR Nasal RSV (PCR) Nasal B.pertussis DNA PCR Nasal C.pneumoniae (PCR) Yobani Human Metapneumo PCR Nasal M.pneumoniae (PCR) Nasal SARS-CoV-2 (PCR) Gastric Fluid pH Gastric Occult Blood 12/13/23 12/13/23 12/13/23 01:22 01:25 01:30 WBC RBC Hgb Hct MCV MCH MCHC RDW Plt Count MPV Neut # (Auto) Lymph # (Auto) [place] # (Auto) Eos # (Auto) Baso # (Auto) Absolute Nucleated RBC Nucleated RBC % PT 31.5 H INR 3.1 H Bld Gas Analysis Time 0134 Sample Site LEFT RADIAL ABG pH 7.52 H ABG pCO2 44 ABG pO2 49 L ABG HCO3 34.6 H ABG Total CO2 36.0 H ABG O2 Saturation 87 L* ABG Base Excess 10.4 H Huey Test POSITIVE O2 Delivery Device NASAL CANNULA O2 Liters/Min 4.00 FiO2 36.00 Sodium Potassium Chloride Carbon Dioxide Anion Gap BUN Creatinine Estimated GFR (MDRD) Glucose Calcium Total Bilirubin AST ALT Alkaline Phosphatase B-Natriuretic Peptide Total Protein Albumin Globulin Albumin/Globulin Ratio Lipase Nasal Adenovirus (PCR) NOT DETECTED Nasal B. parapertussis DNA (PCR) NOT DETECTED Nasal Coronavir 229E PCR NOT DETECTED Nasal Coronavir HKU1 PCR NOT DETECTED Nasal Coronavir NL63 PCR NOT DETECTED Nasal Coronavir OC43 PCR NOT DETECTED Nasal Enterovir/Rhinovir PCR NOT DETECTED Nasal Influenza B PCR NOT DETECTED Nasal Influenza A PCR NOT DETECTED Nasal Parainfluen 1 PCR NOT DETECTED Nasal Parainfluen 2 PCR NOT DETECTED Nasal Parainfluen 3 PCR NOT DETECTED Nasal Parainfluen 4 PCR NOT DETECTED Nasal RSV (PCR) NOT DETECTED Nasal B.pertussis DNA PCR NOT DETECTED Nasal C.pneumoniae (PCR) NOT DETECTED Yobani Human Metapneumo PCR NOT DETECTED Nasal M.pneumoniae (PCR) NOT DETECTED Nasal SARS-CoV-2 (PCR) NOT DETECTED Gastric Fluid pH Gastric Occult Blood 10/27/23 02:00 WBC RBC Hgb Hct MCV MCH MCHC RDW Plt Count MPV Neut # (Auto) Lymph # (Auto) [place] # (Auto) Eos # (Auto) Baso # (Auto) Absolute Nucleated RBC Nucleated RBC % PT INR Bld Gas Analysis Time Sample Site ABG pH ABG pCO2 ABG pO2 ABG HCO3 ABG Total CO2 ABG O2 Saturation ABG Base Excess Huey Test O2 Delivery Device O2 Liters/Min FiO2 Sodium Potassium Chloride Carbon Dioxide Anion Gap BUN Creatinine Estimated GFR (MDRD) Glucose Calcium Total Bilirubin AST ALT Alkaline Phosphatase B-Natriuretic Peptide Total Protein Albumin Globulin Albumin/Globulin Ratio Lipase Nasal Adenovirus (PCR) Nasal B. parapertussis DNA (PCR) Nasal Coronavir 229E PCR Nasal Coronavir HKU1 PCR Nasal Coronavir NL63 PCR Nasal Coronavir OC43 PCR Nasal Enterovir/Rhinovir PCR Nasal Influenza B PCR Nasal Influenza A PCR Nasal Parainfluen 1 PCR Nasal Parainfluen 2 PCR Nasal Parainfluen 3 PCR Nasal Parainfluen 4 PCR Nasal RSV (PCR) Nasal B.pertussis DNA PCR Nasal C.pneumoniae (PCR) Yobani Human Metapneumo PCR Nasal M.pneumoniae (PCR) Nasal SARS-CoV-2 (PCR) Gastric Fluid pH 5.0 Gastric Occult Blood POSITIVE - Rads (name of study) Chest x-ray Relevant Findings:: Final report received, See rad report (Streaky bibasilar opacities more pronounced on the left likely atelectasis.) PD Medical Decision Making - ED course Complexity details: reviewed old records, reviewed results, re-evaluated patient, considered differential, d/w it security consultant ED course: The patient did not appear to be in distress, but had very prominent upper airway sounds and was continuously spitting out thick, yellowish-brown material. He did intermittently seem to regurgitate some light brown contents that appeared likely to be vomitus, and this was found to be Gastroccult positive. We could not get a reliable Pleth on the patient and pulse ox ranged widely between the 70s and around 90%. He was placed on 4 L of oxygen per nasal cannula and an ABG was performed, which showed a pH of 7.157, pCO2 43.7, pO2 of 49.4, and SpO2 of 87%. The bicarb is 34.6. Chest x-ray was performed and showed probable atelectasis in the lower regions of the lungs but otherwise no specific findings. The patient's laboratory studies showed normal hemoglobin and hematocrit with a white blood cell count of 19.4. He was found to have a potassium significantly decreased at 2.1 with a normal sodium. Blood glucose was 174. The BUN was elevated in the 70s and creatinine was 2.1 with a GFR of 34. BNP was normal. Respiratory PCR panel was negative. I did look back at previous lab values and we only had 1 set for comparison and this was from 2 years ago. At that time, the patient's kidney function was normal. I did have respiratory therapy come down and suction the patient and a large amount of thick, yellowish-brown material was suctioned out of the patient's upper airway. Although the patient's x-ray was negative, I was concerned given the elevated white blood cell count and the copious secretions, at least some of which were likely gastric, that the patient might have a developing aspiration pneumonia that was not clear because of his dehydration. He was started on clindamycin IV and also on IV fluids. He was given a K rider as well. I spoke with the on- call telehospitalist and he did accept the patient for admission. Departure - Departure Disposition: 66 [facility] DC/Xfer Clinical Impression: Hypoxia, Hypokalemia, Upper GI bleed Aspiration into airway Qualifiers: Encounter type: initial encounter Qualified Code(s): T17.908A - Unspecified foreign body in respiratory tract, part unspecified causing other injury, initial encounter Condition: Serious Forms: PCP List
[2023-10-27] MEDS ORDERED: ONDANSETRON 4 MG/2 ML VIAL IVP STA (03:13)
[2023-10-27] MEDS ORDERED: AMPICILLIN/SULBACTAM 3 GM in SODIUM CHLORIDE 0.9% MINIBAG 100 ML IV STA (04:13)
[2023-10-27] MEDS ORDERED: IPRATROPIUM/ALBUTEROL 3 ML NEB INH PRN (05:33)
[2023-10-27] MEDS ORDERED: MORPHINE 2 MG/ML CARPUJECT IVP PRN (05:50)
[2023-10-27] MEDS: FUROSEMIDE 40 MG/4 ML VIAL IVP SCH ×2 (06:10→13:58)
[2023-10-27] MEDS: POTASSIUM CHLOR 10 MEQ/100 ML 10 MEQ/100 ML BAG IV SCH ×4 (06:11→09:19)
[2023-10-27] MEDS: SODIUM CHLORIDE FLUSH 0.9% 10 ML SYRINGE IVP SCH ×2 (09:19→16:17)
--- NOTE | 2023-10-27 09:43 | XRAY Report ---
PROCEDURE: Chest 1 View X-Ray INDICATIONS: Hypoxia, poss aspiration PNA vs CHF TECHNIQUE: One view of the chest was acquired. COMPARISON: 10/27/2023 at 0116 hours FINDINGS: Surgical changes and devices: None. Lungs and pleura: No pleural effusions or pneumothorax. There is increased, moderate basilar predomi nant interstitial pulmonary opacity, with increased airspace opacity in the right lung base. Mediastinum: Mediastinal contours appear normal. Heart size is normal. Bones and chest wall: No suspicious bony lesions. Overlying soft tissues appear unremarkable. IMPRESSION: 1. Increased bilateral edema versus pneumonia. 2. Right basilar atelectasis versus pneumonia. Follow-up PA and lateral chest x-rays or chest CT is r ecommended to ensure resolution, and to exclude underlying neoplasm. Reviewed by: Claudia López MD on 10/27/2023 9:41 AM PST Approved by: Claudia López MD on 10/27/2023 9:41 AM [facility] Station ID: [id number]
[2023-10-27 09:44] LABS: BASOPHILS % (AUTO) 0.4 %; EOSINOPHILS % (AUTO) 0.8 %; HCT - HEMATOCRIT 44.2 % (42.0-52.0); HGB - HEMOGLOBIN 14.7 g/dL (14.0-18.0); LYMPHOCYTES % (AUTO) 1.5 %; MEAN CORPUSCULAR HEMOGLOBIN 30.8 pg (27.0-31.0); MEAN CORPUSCULAR HGB CONC 33.3 g/dL (32.0-36.0); MEAN CORPUSCULAR VOLUME 92.5 fL (80.0-94.0); MEAN PLATELET VOLUME 12.4 fL (7.4-11.4); MONOCYTES % (AUTO) 5.8 %; NEUTROPHILS % (AUTO) 91.1 %; PLT - PLATELET COUNT 178 10^3/uL (130-450); RED BLOOD COUNT 4.78 10^6/uL (4.70-6.10); RED CELL DISTRIBUTION WIDTH 13.5 % (12.0-15.0); WHITE BLOOD COUNT 12.9 x10^3/uL (4.8-10.8)
[2023-10-27 09:45] LABS: ABNORMAL LYMPHS % (MANUAL) 0 %
[2023-10-27 10:04] LABS: CRP - C-REACTIVE PROTEIN 9.7 mg/dL (<0.5)
[2023-10-27 10:14] LABS: BAND NEUTROPHILS % (MANUAL) 20 %; EOSINOPHILS # (MANUAL) 0.1 10^3/uL (0-0.7); LYMPHOCYTES # (MANUAL) 0.3 10^3/uL (1.5-3.5); LYMPHOCYTES % (MANUAL) 2 %; METAMYELOCYTES % (MANUAL) 2 %; MONOCYTES # (MANUAL) 0.5 10^3/uL (0.0-1.0); MYELOCYTES % (MANUAL) 4 %; NEUTROPHILS # (MANUAL) 11.2 10^3/uL (1.5-6.6)
[2023-10-27 10:15] LABS: DIFFERENTIAL COMMENT MANUAL DIFFERENTIAL; PLATELET ESTIMATE, MANUAL NORMAL (130-450,000) (NORMAL); PLATELET MORPHOLOGY NORMAL APPEARANCE (NORMAL); RBC MORPHOLOGY (MULTIPLE) NORMAL APPEARANCE (NORMAL); WBC MORPHOLOGY (MULTIPLE) NORMAL APPEARANCE (NORMAL)
[2023-10-27] MEDS: MORPHINE 2 MG/ML CARPUJECT IVP PRN ×3 (10:16→16:48)
[2023-10-27] MEDS: PIPERACILLIN/TAZOBACTAM 3.375 GM in SODIUM CHLORIDE 0.9% MINIBAG 100 ML IV SCH ×3 (10:17→21:17)
[2023-10-27 10:20] LABS: CALCIUM 8.5 mg/dL (8.5-10.3); CREATININE 2.1 mg/dL (0.6-1.3); LACTIC ACID, VENOUS 5.4 mmol/L (0.5-2.2)
[2023-10-27] MEDS ORDERED: INSULIN REGULAR HUMAN 300 UNIT/3 ML VIAL IVP ONE (10:24)
[2023-10-27] MEDS ORDERED: DEXTROSE 50% ABBOJECT 25 GM/50 ML SYRINGE IVP ONE (10:24)
--- NOTE | 2023-10-27 10:30 | HISTORY & PHYSICAL EXAMINATION ---
Chief Complaint - Chief Complaint Chief Complaint: Low BP and vomiting, more lethargic than usual History of Present Illness - Admitted From Admitted From:: ED - History Obtained From History obtained from: ED provider and daughter, son and son-in-law at bedside - History of Present Illness HPI Comment/Other: This is an 78-year-old male with a history of multiple strokes causing dementia, he lives in a intermediate for the last 1-1/2 years. He is on medication for his dementia. The patient became more weak and lethargic and when intermediate staff found he was hypotensive today, an ambulance was called and he was brought to the ER. During transport he was seen to be vomiting. He had repeat episodes of vomiting in the ER and the gastric contents were tested and came back heme positive. He is desaturating. Chest x-ray was read as having a streaky opacity but his exam was consistent with congestive heart failure with rales on exam, and leg edema and he was given IV Lasix. He was also cultured and given a dose of IV antibiotics. The WBC is elevated at 19. No Lactic Acid level was done. His K is 2.1, BUN/creat 79/2.1 (baseline creat is 1.0). The ER provider called the night Telemedicine doctor at 0400 who placed admission orders to [facility], but that Telemedicine provider did not meet the patient or do an H&P. I am coming in at 0700, on Day shift and am meeting the patient for an H&P and have just reviewed the chart. The patient is following with his eyes, not answering questions, is mostly asleep, moves all extremities spontaneously and is tachypneic and has audible rales and wheezes from across the room. His first lactic acid level is coming back at 5.3 and blood pressure is dropping, heart rate is increasing, consistent with septic shock. The ER provider's note stated that the family was contacted and the POLST was reviewed. The POLST states he is DNR with goal being comfort care. But the family did want him admitted and hospitalized to manage the current respiratory failure, hypoxia, heart failure and probable pneumonia. History - Past Medical History Cardiovascular: reports: Hypertension, High cholesterol, Coronary artery disease, Atrial fibrillation Neuro: reports: Dementia, CVA, Parkinson's - Family & Social History Living arrangement: [facility] Social History Notes: The [facility] reported he is able to feed himself, is able to move from chair to bed but is otherwise minimally active. The family told me he is starting to not recognize them. - Substance History Use: Uses substance without health or social issues: NONE Meds/Allgy - Home Medications Home Medications: Ambulatory Orders Medication Instructions Recorded Confirmed Acetaminophen [Pain Relief Extra 1,000 mg PO Q4HR PRN 10/27/23 10/27/23 Strength] Bisacodyl Supp [Dulcolax Supp] 10 mg MN DAILY PRN 10/27/23 10/27/23 Docusate Sodium 100Mg Capsule 100 mg PO DAILY 10/27/23 10/27/23 [Colace 100Mg Capsule] Dorzolamide/Timolol Ophth Soln 1 drops LEFTEYE BID 10/27/23 10/27/23 [Cosopt] Latanoprost 0.005% Ophth Drops 1 drops LEFTEYE QPM 10/27/23 10/27/23 [Xalatan Ophth Drops] Magnesium Hydroxide [Milk of 2,400 mg PO Q48H PRN 10/27/23 10/27/23 Magnesia] Metoprolol Tartrate [Lopressor] 50 mg PO BID 10/27/23 10/27/23 Potassium Chloride 20 meq PO DAILY 10/27/23 10/27/23 Rivaroxaban [Xarelto] 20 mg PO QPM 10/27/23 10/27/23 Saline Enema [Fleets Saline Enema] 133 ml RC Q24H PRN 10/27/23 10/27/23 Torsemide 60 mg PO 0800,1400 10/27/23 10/27/23 Triamcinolone 0.1% Cream [Kenalog 0.1 % TOP Q48H 10/27/23 10/27/23 0.1% Cream] Triamcinolone 0.5% Cream [Kenalog 1 applic TOP BID 10/27/23 10/27/23 0.5% Cream] diphenhydrAMINE [Benadryl] 25 mg PO Q12H PRN 10/27/23 10/27/23 metOLazone [Zaroxolyn] 2.5 mg PO DAILY 10/27/23 10/27/23 - Allergies Allergies/Adverse Reactions: Allergies Allergy/AdvReac Type Severity Reaction Status Date / Time No Known Drug Allergies Allergy Verified 10/27/23 01:31 Review of Systems - Constitutional Constitutional: reports: Weakness - Cardiovascular Cariovascular: reports: Edema - All Other Systems All Other Systems: reports: Other (Limited information was obtained from family members at bedside, and his sx are as in HPI and above) Exam - Vital Signs Reviewed Vital Signs: Yes Vital Signs: Vital Signs x48h Temp Pulse Pulse Resp BP BP Pulse Ox 10/27/23 08:10 36.9 C 104 H 36 H 130/101 H 92 10/27/23 07:33 120 H 38 H 10/27/23 05:41 37.7 C 108 H 32 H 136/86 H 85 L 10/27/23 04:50 10/27/23 04:30 105 H 33 H 133/82 H 10/27/23 04:00 110 H 35 H 145/95 H 88 L 10/27/23 03:30 104 H 34 H 106/76 89 L O2 Flow Rate 10/27/23 08:10 15 10/27/23 07:33 10/27/23 05:41 15 10/27/23 04:50 5 10/27/23 04:30 10/27/23 04:00 5 10/27/23 03:30 5 - Physical Exam General Appearance: positive: Mild distress (Tachypneic), Lethargic Eyes Bilateral: positive: Normal inspection, No lid inflammation ENT: positive: No signs of dehydration Neck: positive: Nml inspection Respiratory: positive: Wheezes, Rales, Rhonchi Cardiovascular: positive: Irregularly irregular (Very distant heart sounds due to overlying rales and rhonchi) Abdomen: positive: No distention Skin: positive: Warm, Dry Extremities: positive: Other (Verrucous changes of both anterior shins with brown-red venous stasis changes and 1+ edema to above the knees) Neurologic/Psychiatric: positive: Other (Moving head and upper extremities spontaneously. Lethargic. Is not responding to voice.) Sepsis Event Note (H) - Evaluation Current Stage of Sepsis: Septic shock Possible source of Sepsis: positive: Pulmonary - Sepsis Criteria Sepsis Criteria: Recorded Heart Rate greater than 90 bpm, Respiratory: Increasing oxygen requirements, WBC count greater than 12,000 or less than 4000, SYNTHETIC PLASTERER: altered consciousness (unrelated to primary neuro pathology), Metabolic: lactate > 2 mmol/L Conclusion/Plan - Problem List (1) Septic shock Conclusion/Plan: We are unable to give aggressive IV fluids despite a high lactic acid level, because he is in pulmonary edema. He had to get Lasix and the combination of the Lasix plus arising lactic acid level suggest he is in septic shock I discussed the poor prognosis that his combination of problems, with the family at bedside. Plan: Follow his lactic acid level to late response Follow WBC daily Continue with empiric IV antibiotics to cover oral anaerobes and for aspiration pneumonia (2) AMS (altered mental status) Conclusion/Plan: He has more confusion on top of his already preceding confusion from dementia. This is consistent with his sepsis Plan: Supportive care and resume his dementia med if he awakens to be able to swallow (3) Aspiration into airway Conclusion/Plan: He was witnessed to aspirate vomitus several times. He is desaturating. A repeat chest x-ray was done that shows infiltrate and volume overload Plan: Continue with IV antibiotics to cover oral anaerobes, will use empiric IV Give supplemental O2. His FiO2 needs are increasing over several hours, from 2 to 5 L now up to 15 L and he is on a rebreather mask. I discussed with the family that this bodes a poor prognosis, since the patient will not be transferred to the ICU or have extraneous measures or be put on a ventilator Qualifiers: Encounter type: initial encounter Qualified Code(s): T17.908A - Unspecified foreign body in respiratory tract, part unspecified causing other injury, init ial encounter (4) ALEAH (acute kidney injury) Conclusion/Plan: His last creatinine was done 2 years ago and was normal. but in the interim there might have been some CKD that are unaware of. The current ALEAH is likely from renal hypoperfusion or may be from cardiorenal syndrome. Plan: Avoid nephrotoxins Dose his meds for renal dosing Follow BMP daily (5) CHF (congestive heart failure) Conclusion/Plan: CHF is reported on chest x-ray and is present on exam with rales and leg edema. The son-in-law at bedside also reports he has a history of CHF Plan: Will continue with IV twice daily Lasix Will also give morphine IV as needed dyspnea Follow I's and O's and daily weights Troponins ordered x 2 to rule out an acute AR Echo ordered to evaluate LVEF. Adjust meds based on EF. Will restart his cardiac meds once the list is reconciled by pharmacy (6) Upper GI bleed Conclusion/Plan: The vomitus was tested and came back heme positive Plan: Will treat empirically for upper GI bleed using IV twice daily Protonix The patient is not a candidate for endoscopy given his septic shock and altered mental status (7) Hypokalemia Conclusion/Plan: Despite having significant ALEAH, his serum potassium is very low. This suggests he has had very poor oral intake for longer than a day Plan: The night Telemedicine doctor ordered replacement of K therefore his serum K needs to be followed later today because of the ALEAH, in case he develops hype rkalemia Follow BMP daily (8) Dementia Conclusion/Plan: Family was able to give me a description of his first stroke being in 1996 and he got "the clot busting medicine". He was then put on Coumadin. His then took him off his Coumadin to use herbs. 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 His baseline is that he is usually able to do ADLs and feed himself. His activity is only going from bed to chair at the [place]. He initially does not recognize family members until they are in a cnversation, then he recognizes who they are Plan: His dementia med will be ordered to use here orally, if he wakes up and is able to swallow - Lab Results Fish Bones: 10/27/23 09:34 10/27/23 14:53 - Diagnostic Imaging Results Diagnostic Imaging Results: positive: Final report reviewed - Other Other Results/Comments: Attestation: The patient is expected to be hospitalized for greater than 2 midnights and is expected to be discharged or transferred to another facility within 96 hours: Yes.
[2023-10-27 10:41] LABS: BILIRUBIN,URINE NEGATIVE (NEGATIVE); GLUCOSE, URINE (UA) NEGATIVE (NEGATIVE); KETONES,URINE (UA) NEGATIVE (NEGATIVE); LEUKOCYTE ESTERASE, URINE NEGATIVE (NEGATIVE); NITRITE,URINE NEGATIVE (NEGATIVE); OCCULT BLOOD,URINE NEGATIVE (NEGATIVE); PH,URINE 5.5 PH (5.0-7.5); PROTEIN,URINE NEGATIVE (NEGATIVE); UROBILINOGEN,URINE 0.2 (NORMAL) E.U./dL (NORMAL)
[2023-10-27] MEDS: PANTOPRAZOLE 40 MG VIAL IV SCH ×2 (10:43→21:17)
[2023-10-27 10:58] LABS: BACTERIA,URINE None Seen /HPF (None Seen); CLARITY,URINE CLEAR (CLEAR); RBC,URINE 0-5 /HPF (0-5); SQUAMOUS EPITHELIAL CELL,UR RARE Squamous (<= Few); WBC,URINE 0-3 /HPF (0-3)
--- NOTE | 2023-10-27 11:46 | PHARMACY PROGRESS NOTE ---
- Best Possible Medication History Admit Date and Time: 10/27/23 0358 Processed by: Pharmacy Medication History completed: Yes Patient Interview: Pt unable to participate Secondary Source(s): Insurance records, Facility MAR as ONLY source As the person ultimately responsible for medication therapy, providers are able to order a medication from an existing home medication list in [facility] via the "Reconcile Routine" prior to Confirmation of that medication by technician support association. Such practice is discouraged except when the physician, in their clinical judgment, deems that a medical need exists for a medication without regard to previous use.
[2023-10-27 15:41] LABS: CALCIUM 8.8 mg/dL (8.5-10.3); CREATININE 2.6 mg/dL (0.6-1.3); POTASSIUM 2.2 mmol/L (3.5-4.5)
[2023-10-27] MEDS: SCOPOLAMINE PATCH TOP SCH (16:17)
[2023-10-27 16:30] LABS: LACTIC ACID, VENOUS 4.7 mmol/L (0.5-2.2)
[2023-10-27 19:46] LABS: LACTIC ACID, VENOUS 4.3 mmol/L (0.5-2.2)
[2023-10-27 23:19] LABS: LACTIC ACID, VENOUS 3.7 mmol/L (0.5-2.2)
[2023-10-28] MEDS: SODIUM CHLORIDE FLUSH 0.9% 10 ML SYRINGE IVP SCH ×3 (00:17→16:20)
[2023-10-28 02:43] LABS: LACTIC ACID, VENOUS 3.2 mmol/L (0.5-2.2)
[2023-10-28] MEDS: PIPERACILLIN/TAZOBACTAM 3.375 GM in SODIUM CHLORIDE 0.9% MINIBAG 100 ML IV SCH ×4 (03:41→22:18)
[2023-10-28] MEDS: MORPHINE 2 MG/ML CARPUJECT IVP PRN ×7 (03:44→22:18)
[2023-10-28] MEDS: FUROSEMIDE 40 MG/4 ML VIAL IVP SCH ×2 (05:44→14:39)
[2023-10-28 06:43] LABS: LACTIC ACID, VENOUS 2.6 mmol/L (0.5-2.2)
[2023-10-28] MEDS: PANTOPRAZOLE 40 MG VIAL IV SCH ×2 (10:57→20:34)
--- NOTE | 2023-10-28 19:21 | PROVIDER PROGRESS NOTE ---
Assessment/Plan - Problem List (1) Septic shock Assessment/Plan: (1) Septic shock Conclusion/Plan: We were unable to give aggressive IV fluids despite a high lactic acid level, because he is in pulmonary edema. He had to get Lasix and the combination of the Lasix plus arising lactic acid level suggest he is in septic shock I discussed the poor prognosis that his combination of problems, with the family at bedside. Last night I also proposed comfort measures and the family agreed to that. Plan: Continue with empiric IV antibiotics I will put him on a scopolamine patch to decrease the upper airway rattling Continue with supplemental O2 Comfort package will be ordered (2) AMS (altered mental status) Conclusion/Plan: He had more confusion on top of his already preceding confusion from dementia. Today he is also more obtunded and not responding to his surrounding Plan: I discussed the poor prognosis that his combination of problems, with the family at bedside. Last night I also proposed comfort measures and the family agreed to that. Comfort package was ordered we will continue this. (3) Aspiration into airway Conclusion/Plan: He was witnessed to aspirate vomitus several times. He is desaturating. A repeat chest x-ray was done that shows infiltrate and volume overload Plan: Continue with IV antibiotics Give supplemental O2. He is up to needing 15 L/min of O2. The family brought up transitioning him to hospice. We checked with hospice today and he cannot be discharged under their care LOC is at 6 L/min O2 or less.. I explained this to the family at bedside today. Today hospice could take him on as their patient, but it is unlikely we could tell titrate his 15 L/min down to 6 L/min today Qualifiers: Encounter type: initial encounter Qualified Code(s): T17.908A - Unspecified foreign body in respiratory tract, part unspecified causing other injury, initial encounter (4) ALEAH (acute kidney injury) Conclusion/Plan: His last creatinine was done 2 years ago and was normal. but in the interim there might have been some CKD that are unaware of. The current ALEAH is likely from renal hypoperfusion or may be from cardiorenal syndrome. Plan: I am continuing Lasix now for respiratory distress but will stop drawing daily BMP (5) CHF (congestive heart failure) Conclusion/Plan: CHF is reported on chest x-ray and is present on exam with rales and leg edema. The son-in-law at bedside also reports he has a history of CHF. Echo was ordered to evaluate LVEF, but he cannot swallow cardiac meds and is now on Comfort care Plan: Will continue with IV twice daily Lasix Will also give morphine IV as needed dyspnea Will stop telemetry and do VS just daily (6) Upper GI bleed Conclusion/Plan: The vomitus was tested and came back heme positive Plan: I started him on IV twice daily Protonix (7) Hypokalemia Conclusion/Plan: Despite having significant ALEAH, his serum potassium is very low. This suggests he has had very poor oral intake for longer than a day Plan: No further labs, since he is on comfort care (8) Dementia Conclusion/Plan: Family was able to give me a description of his first stroke being in 1996 and he got "the clot busting medicine". He was then put on Coumadin. His then took him off his Coumadin to use herbs. 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 His baseline is that he is usually able to do ADLs and feed himself. His activity is only going from bed to chair at the [facility]. He initially does not recognize family members until they are in a cnversation, then he recognizes who they are Plan: He is unable to swallow any of his p.o. meds (8)Comfort measures only status Conclusion/Plan: Plan: Cmfort package ordered Support provided to family They would like him to go back to his facility to there under hospice care. Hospice could take him today but he cannot be discharged on 15 L/min O2, must be at 6 L/min or less - Current Meds Current Meds: Current Medications Generic Name Dose Route Start Last Admin Trade Name Freq PRN Reason Stop Dose Admin Furosemide 40 mg 10/27/23 16:01 10/28/23 14:39 Furosemide 40 Mg/4 Ml Vial IVP 40 mg BIDDIURETIC RODDY Administration Piperacillin Sod/Tazobactam 100 mls @ 200 mls/hr 10/27/23 10:00 10/28/23 16:50 Sod 3.375 gm/ Sodium Chloride IV Infused Q6H RODDY Infusion Morphine Sulfate 2 mg 10/27/23 09:02 10/28/23 17:01 Morphine 2 Mg/Ml Carpuject IVP 2 mg Q2HR PRN Administration Dyspnea Pantoprazole Sodium 40 mg 10/27/23 10:28 10/28/23 10:57 Pantoprazole 40 Mg Vial IV 40 mg BID RODDY Administration Scopolamine HBr 1 patch 10/27/23 16:00 10/27/23 16:17 Scopolamine Patch TOP 1 patch Q3D RODDY Administration Sodium Chloride 10 ml 10/27/23 09:00 10/28/23 16:20 Sodium Chloride Flush 0.9% 10 Ml Syringe IVP 10 ml 0100,0900,1700 RODDY Administration - Lab Result Fish Bone Diagrams: 10/27/23 09:34 10/27/23 14:53 - Additional Planning My Orders: My Active Orders 10/27/23 19:39 Telemetry-Discontinue [RC] .ONCE 10/28/23 Hospice Informational Visit (with stock supervisor) [CONS] Routine Hospice Referral (Coordinate Admission by Hospice Office Staff) [CONS] Routine 10/28/23 07:46 Vital Signs [RC] DAILY 10/28/23 19:15 LORazepam INJ [Ativan Inj (Vial)] 1 mg IVP Q2H PRN Subjective - Subjective Nursing Reports: Other (Patient moves his arms and hands, picks at his bed sheets. He turns his head, only opens his eyes briefly, does not interact with family at bedside, only responds to touch) Objective Vital Signs: Vital Signs - 24 hr 10/28/23 10/28/23 05:01 08:25 Temperature 37.2 C Heart Rate [ 117 H Monitoring electrodes] Respiratory 33 H Rate Blood Pressure 116/75 [Right Brachial artery] O2 Saturation 98 If not protocol 15 15 : Oxygen Flow, liters/minute Oxygen O2 Source Non-rebreather mask Oxygen Flow Rate 5 I&O (Last 24 Hrs): Intake and Output Totals x24h 10/26/23 10/27/23 10/28/23 23:59 23:59 23:59 Intake Total 1943.333 300 Output Total 880 5445 Balance 1063.333 -1975 General: No acute distress (wearing O2 rebreather mask and appears comfortable), Other (Obtunded, only responds to touch) HEENT: Other (dry mucosa) Neck: Supple, No JVD Neuro: Other (Obtunded, moves extrem, responds to touch only) Cardiovascular: Regular rate, No murmurs Respiratory: No respiratory distress, Breath sounds nml Abdomen: Soft Extremities: No clubbing, No edema, No tenderness/swelling - Results Results: Laboratory Results WBC 12.9 x10^3/uL (4.8-10.8) H 10/27/23 09:34 RBC 4.78 10^6/uL (4.70-6.10) 10/27/23 09:34 Hgb 14.7 g/dL (14.0-18.0) 10/27/23 09:34 Hct 44.2 % (42.0-52.0) 10/27/23 09:34 MCV 92.5 fL (80.0-94.0) 10/27/23 09:34 MCH 30.8 pg (27.0-31.0) 10/27/23 09:34 MCHC 33.3 g/dL (32.0-36.0) 10/27/23 09:34 RDW 13.5 % (12.0-15.0) 10/27/23 09:34 Plt Count 178 10^3/uL (130-450) 10/27/23 09:34 MPV 12.4 fL (7.4-11.4) H 10/27/23 09:34 Neut # (Auto) Not Reportable 10/27/23 09:34 Lymph # (Auto) Not Reportable 10/27/23 09:34 [place] # (Auto) Not Reportable 10/27/23 09:34 Eos # (Auto) Not Reportable 10/27/23 09:34 Baso # (Auto) Not Reportable 10/27/23 09:34 Absolute Nucleated RBC Not Reportable 10/27/23 09:34 Total Counted 100 10/27/23 09:34 Band Neuts % (Manual) 20 % (0-10) H 10/27/23 09:34 Abnorm Lymph % (Manual) 0 % 10/27/23 09:34 Metamyelocytes % 2 % (-0) H 10/27/23 09:34 Myelocytes % 4 % (-0) H 10/27/23 09:34 Nucleated RBC % Not Reportable 10/27/23 09:34 Neutrophils # (Manual) 11.2 10^3/uL (1.5-6.6) H 10/27/23 09:34 Lymphocytes # (Manual) 0.3 10^3/uL (1.5-3.5) L 10/27/23 09:34 Monocytes # (Manual) 0.5 10^3/uL (0.0-1.0) 10/27/23 09:34 Eosinophils # (Manual) 0.1 10^3/uL (0-0.7) 10/27/23 09:34 Basophils # (Manual) 0.0 10^3/uL (0-0.1) 10/27/23 09:34 Differential Comment MANUAL DIFFERENTIAL 10/27/23 09:34 WBC Morphology NORMAL APPEARANCE (NORMAL) 10/27/23 09:34 Platelet Estimate NORMAL (130-450,000) (NORMAL) 10/27/23 09:34 Platelet Morphology NORMAL APPEARANCE (NORMAL) 10/27/23 09:34 RBC Morph Micro Appear NORMAL APPEARANCE (NORMAL) 10/27/23 09:34 PT 31.5 secs (9.9-12.6) H 10/27/23 01:25 INR 3.1 (0.8-1.2) H 10/27/23 01:25 Bld Gas Analysis Time 0134 10/27/23 01:30 Sample Site LEFT RADIAL 10/27/23 01:30 ABG pH 7.52 (7.35-7.45) H 10/27/23 01:30 ABG pCO2 44 mmHg (34-45) 10/27/23 01:30 ABG pO2 49 mmHg (80-100) L 10/27/23 01:30 ABG HCO3 34.6 mmol/L (22.0-26.0) H 10/27/23 01:30 ABG Total CO2 36.0 MMOL/L (21.0-29.0) H 10/27/23 01:30 ABG O2 Saturation 87 % (94-98) L* 10/27/23 01:30 ABG Base Excess 10.4 mmol/L (-2.0-3.0) H 10/27/23 01:30 Huey Test POSITIVE 10/27/23 01:30 O2 Delivery Device NASAL CANNULA 10/27/23 01:30 O2 Liters/Min 4.00 LPM 10/27/23 01:30 FiO2 36.00 10/27/23 01:30 Sodium 139 mmol/L (135-145) 10/27/23 14:53 Potassium 2.2 mmol/L (3.5-4.5) L* 10/27/23 14:53 Chloride 90 mmol/L (101-111) L 10/27/23 14:53 Carbon Dioxide 33 mmol/L (21-32) H 10/27/23 14:53 Anion Gap 16.0 (6-13) H 10/27/23 14:53 BUN 88 mg/dL (6-20) H* 10/27/23 14:53 Creatinine 2.6 mg/dL (0.6-1.3) H 10/27/23 14:53 Estimated GFR (MDRD) 24 (>89) L 10/27/23 14:53 Glucose 158 mg/dL (74-104) H 10/27/23 14:53 POC Whole Bld Glucose 132 mg/dL (70 - 100) H 10/27/23 10:48 Lactic Acid 1.8 mmol/L (0.5-2.2) 10/28/23 09:35 Calcium 8.8 mg/dL (8.5-10.3) 10/27/23 14:53 Magnesium 2.0 mg/dL (1.7-2.3) 10/27/23 09:34 Total Bilirubin 1.1 mg/dL (0.2-1.0) H 10/27/23 01:15 AST 16 IU/L (10-42) 10/27/23 01:15 ALT 16 IU/L (10-60) 10/27/23 01:15 Alkaline Phosphatase 83 IU/L (42-121) 10/27/23 01:15 Troponin I High Sens 57.3 ng/L (2.3-19.7) H* 10/27/23 11:59 C-Reactive Protein 9.7 mg/dL (<0.5) H 10/27/23 09:34 B-Natriuretic Peptide 125 pg/mL (5-100) H 10/27/23 09:34 Total Protein 8.8 g/dL (6.4-8.9) 10/27/23 01:15 Albumin 4.3 g/dL (3.2-5.5) 10/27/23 01:15 Globulin 4.5 g/dL (2.1-4.2) H 10/27/23 01:15 Albumin/Globulin Ratio 1.0 (1.0-2.2) 10/27/23 01:15 Lipase 19 U/L (11-82) 10/27/23 01:15 Urine Color YELLOW 10/27/23 10:30 Urine Clarity CLEAR (CLEAR) 10/27/23 10:30 Urine pH 5.5 PH (5.0-7.5) 10/27/23 10:30 Ur Specific [employer] 1.025 (1.002-1.030) 10/27/23 10:30 Urine Protein NEGATIVE mg/dL (NEGATIVE) 10/27/23 10:30 Urine Glucose (UA) NEGATIVE mg/dL (NEGATIVE) 10/27/23 10:30 Urine Ketones NEGATIVE mg/dL (NEGATIVE) 10/27/23 10:30 Urine Occult Blood NEGATIVE (NEGATIVE) 10/27/23 10:30 Urine Nitrite NEGATIVE (NEGATIVE) 10/27/23 10:30 Urine Bilirubin NEGATIVE (NEGATIVE) 10/27/23 10:30 Urine Urobilinogen 0.2 (NORMAL) E.U./dL (NORMAL) 10/27/23 10:30 Ur Leukocyte Esterase NEGATIVE (NEGATIVE) 10/27/23 10:30 Urine RBC 0-5 /HPF (0-5) 10/27/23 10:30 Urine WBC 0-3 /HPF (0-3) 10/27/23 10:30 Ur Squamous Epith Cells RARE Squamous (<= Few) 10/27/23 10:30 Urine Bacteria None Seen /HPF (None Seen) 10/27/23 10:30 Urine Culture Comments NOT INDICATED 10/27/23 10:30 Nasal Adenovirus (PCR) NOT DETECTED 10/27/23 01:22 Nasal B. parapertussis DNA (PCR) NOT DETECTED 10/27/23 01:22 Nasal Coronavir 229E PCR NOT DETECTED 10/27/23 01:22 Nasal Coronavir HKU1 PCR NOT DETECTED 10/27/23 01:22 Nasal Coronavir NL63 PCR NOT DETECTED 10/27/23 01:22 Nasal Coronavir OC43 PCR NOT DETECTED 10/27/23 01:22 Nasal Enterovir/Rhinovir PCR NOT DETECTED 10/27/23 01:22 Nasal Influenza B PCR NOT DETECTED 10/27/23 01:22 Nasal Influenza A PCR NOT DETECTED 10/27/23 01:22 Nasal Parainfluen 1 PCR NOT DETECTED 10/27/23 01:22 Nasal Parainfluen 2 PCR NOT DETECTED 10/27/23 01:22 Nasal Parainfluen 3 PCR NOT DETECTED 10/27/23 01:22 Nasal Parainfluen 4 PCR NOT DETECTED 10/27/23 01:22 Nasal RSV (PCR) NOT DETECTED 10/27/23 01:22 Nasal B.pertussis DNA PCR NOT DETECTED 10/27/23 01:22 Nasal C.pneumoniae (PCR) NOT DETECTED 10/27/23 01:22 Yobani Human Metapneumo PCR NOT DETECTED 10/27/23 01:22 Nasal M.pneumoniae (PCR) NOT DETECTED 10/27/23 01:22 Nasal SARS-CoV-2 (PCR) NOT DETECTED 10/27/23 01:22 Gastric Fluid pH 5.0 10/27/23 02:00 Gastric Occult Blood POSITIVE (Negative) 10/27/23 02:00 Sepsis Event Note (H) - Evaluation Current Stage of Sepsis: Septic shock Possible source of Sepsis: positive: Pulmonary - Sepsis Criteria Sepsis Criteria: Recorded Heart Rate greater than 90 bpm, Respiratory: Increasing oxygen requirements, WBC count greater than 12,000 or less than 4000, 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
[2023-10-28] MEDS: LORazepam 2 MG/ML VIAL IVP PRN ×2 (19:51→22:17)
[2023-10-29] MEDS: LORazepam 2 MG/ML VIAL IVP PRN ×4 (00:49→21:38)
[2023-10-29] MEDS: SODIUM CHLORIDE FLUSH 0.9% 10 ML SYRINGE IVP PRN ×2 (00:49→12:47)
[2023-10-29] MEDS: SODIUM CHLORIDE FLUSH 0.9% 10 ML SYRINGE IVP SCH ×3 (00:49→05:55)
[2023-10-29] MEDS: MORPHINE 2 MG/ML CARPUJECT IVP PRN ×4 (04:21→20:32)
[2023-10-29] MEDS: PIPERACILLIN/TAZOBACTAM 3.375 GM in SODIUM CHLORIDE 0.9% MINIBAG 100 ML IV SCH ×4 (04:33→21:38)
[2023-10-29] MEDS: FUROSEMIDE 40 MG/4 ML VIAL IVP SCH ×2 (05:54→13:58)
[2023-10-29] MEDS: PANTOPRAZOLE 40 MG VIAL IV SCH ×2 (09:59→20:33)
--- NOTE | 2023-10-29 19:39 | PROVIDER PROGRESS NOTE ---
Assessment/Plan - Problem List (1) Septic shock Assessment/Plan: (1) Septic shock Conclusion/Plan: We were unable to give aggressive IV fluids despite a high lactic acid level, because he is in pulmonary edema. He had to get Lasix and the combination of the Lasix plus arising lactic acid level suggest he is in septic shock I discussed the poor prognosis that his combination of problems, with the family at bedside and I also proposed comfort measures and the family agreed to that. The scopolamine patch has helped his upper airway gurgling. Plan: Continue with empiric IV antibiotics Cont scopolamine patch to decrease the upper airway rattling Continue with supplemental O2 Cont comfort package (2) Comfort measures only status Conclusion/Plan: Plan: Comfort package was ordered and support provided to family The family would like him to go back to his facility to there under hospice care. Hospice was able to take him under their care yesterday, but yesterday he could not be discharged on 15 L/min O2 (must be on 6L/min or less, per Hospice). Today we have weaned his O2 down to 6 L/min, but today hospice does not have the staff to put him under their care. And he cannot go back to his facility tomorrow, which is Sat, or on a Sun(due to the facility rules) and today is Fri, so he will remain here to pass away. He is actively dieing. (3) AMS (altered mental status) Conclusion/Plan: He had more confusion on top of his already preceding confusion from dementia. Since 10/28, he is also more obtunded and not responding to his surrounding Plan: I discussed the poor prognosis that his combination of problems, with the family at bedside, and proposed comfort measures and the family agreed to that. Comfort package was ordered we will continue this. (4) Aspiration into airway Conclusion/Plan: He was witnessed to aspirate vomitus several times. He is desaturating. A repeat chest x-ray was done that shows infiltrate and volume overload Plan: Continue with IV antibiotics Give supplemental O2. He is up to needing 15 L/min of O2. Yesterday the family brought up transitioning him to hospice. We checked with hospice today and he cannot be discharged under their care LOC is at 6 L/min O2 or less. I explained this to the family at bedside. Today hospice cannot take him on as their patient Qualifiers: Encounter type: initial encounter Qualified Code(s): T17.908A - Unspecified foreign body in respiratory tract, part unspecified causing other injury, initial encounter (5) ALEAH (acute kidney injury) Conclusion/Plan: His last creatinine was done 2 years ago and was normal. but in the interim there might have been some CKD that are unaware of. The current ALEAH is likely from renal hypoperfusion or may be from cardiorenal syndrome. Plan: I am continuing Lasix for respiratory distress from CHF but will stop drawing daily BMP (6) CHF (congestive heart failure) Conclusion/Plan: CHF is reported on chest x-ray and is present on exam with rales and leg edema. The son-in-law at bedside also reports he has a history of CHF. Echo was ordered to evaluate LVEF, but he cannot swallow cardiac meds and is now on Comfort care Plan: Will continue with IV twice daily Lasix Will also give morphine IV as needed dyspnea Remain off telemetry and do VS just daily (7) Upper GI bleed Conclusion/Plan: The vomitus was tested and came back heme positive Plan: I started him on IV twice daily Protonix (8) Hypokalemia Conclusion/Plan: Despite having significant ALEAH, his serum potassium is very low. This suggests he has had very poor oral intake for longer than a day Plan: No further labs, since he is on comfort care (9) Dementia Conclusion/Plan: Family was able to give me a description of his first stroke being in 1996 and he got "the clot busting medicine". He was then put on Coumadin. His then took him off his Coumadin to use herbs. 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 His baseline is that he is usually able to do ADLs and feed himself. [facility] He initially does not r ecognize family members until they are in a cnversation, then he recognizes who they are Plan: He is unable to swallow any of his p.o. meds - Current Meds Current Meds: Current Medications Generic Name Dose Route Start Last Admin Trade Name Freq PRN Reason Stop Dose Admin Furosemide 40 mg 10/27/23 16:01 10/29/23 13:58 Furosemide 40 Mg/4 Ml Vial IVP 40 mg BIDDIURETIC RODDY Administration Piperacillin Sod/Tazobactam 100 mls @ 200 mls/hr 10/27/23 10:00 10/29/23 16:23 Sod 3.375 gm/ Sodium Chloride IV 200 mls/hr Q6H RODDY Administration Lorazepam 1 mg 10/28/23 19:15 10/29/23 16:27 Lorazepam 2 Mg/Ml Vial IVP 1 mg Q2H PRN Administration Anxiety Morphine Sulfate 2 mg 10/27/23 09:02 10/29/23 12:47 Morphine 2 Mg/Ml Carpuject IVP 2 mg Q2HR PRN Administration Dyspnea Pantoprazole Sodium 40 mg 10/27/23 10:28 10/29/23 09:59 Pantoprazole 40 Mg Vial IV 40 mg BID RODDY Administration Scopolamine HBr 1 patch 10/27/23 16:00 10/27/23 16:17 Scopolamine Patch TOP 1 patch Q3D RODDY Administration Sodium Chloride 10 ml 10/27/23 04:04 10/29/23 12:47 Sodium Chloride Flush 0.9% 10 Ml Syringe IVP 10 ml PRN PRN Administration NEEDED PER PROVIDER ORDERS Sodium Chloride 10 ml 10/27/23 09:00 10/29/23 05:55 Sodium Chloride Flush 0.9% 10 Ml Syringe IVP 10 ml 0100,0900,1700 RODDY Administration - Lab Result Fish Bone Diagrams: 10/27/23 09:34 10/27/23 14:53 - Additional Planning My Orders: My Active Orders 10/28/23 19:15 LORazepam INJ [Ativan Inj (Vial)] 1 mg IVP Q2H PRN 10/29/23 14:35 Miscellaenous Nursing Order [RC] QSHIFT Subjective - Subjective Patient Reports: Other (Patient moves his arms and hands, picks at his bed sheets. He turns his head, only opens his eyes briefly, does not interact with family at bedside, only responds to touch) Objective Vital Signs: Vital Signs - 24 hr 10/28/23 10/29/23 19:57 09:00 Temperature 36.6 C Heart Rate [ 115 H Brachial] Respiratory 26 H 18 Rate Blood Pressure 131/77 H [Left Brachial artery] O2 Saturation 98 98 If not protocol 10 10 : Oxygen Flow, liters/minute Oxygen O2 Source Non-rebreather mask Oxygen Flow Rate 5 I&O (Last 24 Hrs): Intake and Output Totals x24h 10/27/23 10/28/23 10/29/23 23:59 23:59 23:59 Intake Total 1943.333 400 200 Output Total 888 1646 3386 Balance 1069.474 -3824 -4413 General: Other (Obtunded, moves spontaneously, responds to touch not to voice) HEENT: Other (dry mucosa) Neck: No JVD Neuro: Other (Obtunded, responds to touch, moves spontaneously) Cardiovascular: Regular rate Respiratory: No respiratory distress Abdomen: Soft Extremities: No edema, No tenderness/swelling - Results Results: Laboratory Results WBC 12.9 x10^3/uL (4.8-10.8) H 10/27/23 09:34 RBC 4.78 10^6/uL (4.70-6.10) 10/27/23 09:34 Hgb 14.7 g/dL (14.0-18.0) 10/27/23 09:34 Hct 44.2 % (42.0-52.0) 10/27/23 09:34 MCV 92.5 fL (80.0-94.0) 10/27/23 09:34 MCH 30.8 pg (27.0-31.0) 10/27/23 09:34 MCHC 33.3 g/dL (32.0-36.0) 10/27/23 09:34 RDW 13.5 % (12.0-15.0) 10/27/23 09:34 Plt Count 178 10^3/uL (130-450) 10/27/23 09:34 MPV 12.4 fL (7.4-11.4) H 10/27/23 09:34 Neut # (Auto) Not Reportable 10/27/23 09:34 Lymph # (Auto) Not Reportable 10/27/23 09:34 [place] # (Auto) Not Reportable 10/27/23 09:34 Eos # (Auto) Not Reportable 10/27/23 09:34 Baso # (Auto) Not Reportable 10/27/23 09:34 Absolute Nucleated RBC Not Reportable 10/27/23 09:34 Total Counted 100 10/27/23 09:34 Band Neuts % (Manual) 20 % (0-10) H 10/27/23 09:34 Abnorm Lymph % (Manual) 0 % 10/27/23 09:34 Metamyelocytes % 2 % (-0) H 10/27/23 09:34 Myelocytes % 4 % (-0) H 10/27/23 09:34 Nucleated RBC % Not Reportable 10/27/23 09:34 Neutrophils # (Manual) 11.2 10^3/uL (1.5-6.6) H 10/27/23 09:34 Lymphocytes # (Manual) 0.3 10^3/uL (1.5-3.5) L 10/27/23 09:34 Monocytes # (Manual) 0.5 10^3/uL (0.0-1.0) 10/27/23 09:34 Eosinophils # (Manual) 0.1 10^3/uL (0-0.7) 10/27/23 09:34 Basophils # (Manual) 0.0 10^3/uL (0-0.1) 10/27/23 09:34 Differential Comment MANUAL DIFFERENTIAL 10/27/23 09:34 WBC Morphology NORMAL APPEARANCE (NORMAL) 10/27/23 09:34 Platelet Estimate NORMAL (130-450,000) (NORMAL) 10/27/23 09:34 Platelet Morphology NORMAL APPEARANCE (NORMAL) 10/27/23 09:34 RBC Morph Micro Appear NORMAL APPEARANCE (NORMAL) 10/27/23 09:34 PT 31.5 secs (9.9-12.6) H 10/27/23 01:25 INR 3.1 (0.8-1.2) H 10/27/23 01:25 Bld Gas Analysis Time 0134 10/27/23 01:30 Sample Site LEFT RADIAL 10/27/23 01:30 ABG pH 7.52 (7.35-7.45) H 10/27/23 01:30 ABG pCO2 44 mmHg (34-45) 10/27/23 01:30 ABG pO2 49 mmHg (80-100) L 10/27/23 01:30 ABG HCO3 34.6 mmol/L (22.0-26.0) H 10/27/23 01:30 ABG Total CO2 36.0 MMOL/L (21.0-29.0) H 10/27/23 01:30 ABG O2 Saturation 87 % (94-98) L* 10/27/23 01:30 ABG Base Excess 10.4 mmol/L (-2.0-3.0) H 10/27/23 01:30 Huey Test POSITIVE 10/27/23 01:30 O2 Delivery Device NASAL CANNULA 10/27/23 01:30 O2 Liters/Min 4.00 LPM 10/27/23 01:30 FiO2 36.00 10/27/23 01:30 Sodium 139 mmol/L (135-145) 10/27/23 14:53 Potassium 2.2 mmol/L (3.5-4.5) L* 10/27/23 14:53 Chloride 90 mmol/L (101-111) L 10/27/23 14:53 Carbon Dioxide 33 mmol/L (21-32) H 10/27/23 14:53 Anion Gap 16.0 (6-13) H 10/27/23 14:53 BUN 88 mg/dL (6-20) H* 10/27/23 14:53 Creatinine 2.6 mg/dL (0.6-1.3) H 10/27/23 14:53 Estimated GFR (MDRD) 24 (>89) L 10/27/23 14:53 Glucose 158 mg/dL (74-104) H 10/27/23 14:53 POC Whole Bld Glucose 132 mg/dL (70 - 100) H 10/27/23 10:48 Lactic Acid 1.8 mmol/L (0.5-2.2) 10/28/23 09:35 Calcium 8.8 mg/dL (8.5-10.3) 10/27/23 14:53 Magnesium 2.0 mg/dL (1.7-2.3) 10/27/23 09:34 Total Bilirubin 1.1 mg/dL (0.2-1.0) H 10/27/23 01:15 AST 16 IU/L (10-42) 10/27/23 01:15 ALT 16 IU/L (10-60) 10/27/23 01:15 Alkaline Phosphatase 83 IU/L (42-121) 10/27/23 01:15 Troponin I High Sens 57.3 ng/L (2.3-19.7) H* 10/27/23 11:59 C-Reactive Protein 9.7 mg/dL (<0.5) H 10/27/23 09:34 B-Natriuretic Peptide 125 pg/mL (5-100) H 10/27/23 09:34 Total Protein 8.8 g/dL (6.4-8.9) 10/27/23 01:15 Albumin 4.3 g/dL (3.2-5.5) 10/27/23 01:15 Globulin 4.5 g/dL (2.1-4.2) H 10/27/23 01:15 Albumin/Globulin Ratio 1.0 (1.0-2.2) 10/27/23 01:15 Lipase 19 U/L (11-82) 10/27/23 01:15 Urine Color YELLOW 10/27/23 10:30 Urine Clarity CLEAR (CLEAR) 10/27/23 10:30 Urine pH 5.5 PH (5.0-7.5) 10/27/23 10:30 Ur Specific [place] 1.025 (1.002-1.030) 10/27/23 10:30 Urine Protein NEGATIVE mg/dL (NEGATIVE) 10/27/23 10:30 Urine Glucose (UA) NEGATIVE mg/dL (NEGATIVE) 10/27/23 10:30 Urine Ketones NEGATIVE mg/dL (NEGATIVE) 10/27/23 10:30 Urine Occult Blood NEGATIVE (NEGATIVE) 10/27/23 10:30 Urine Nitrite NEGATIVE (NEGATIVE) 10/27/23 10:30 Urine Bilirubin NEGATIVE (NEGATIVE) 10/27/23 10:30 Urine Urobilinogen 0.2 (NORMAL) E.U./dL (NORMAL) 10/27/23 10:30 Ur Leukocyte Esterase NEGATIVE (NEGATIVE) 10/27/23 10:30 Urine RBC 0-5 /HPF (0-5) 10/27/23 10:30 Urine WBC 0-3 /HPF (0-3) 10/27/23 10:30 Ur Squamous Epith Cells RARE Squamous (<= Few) 10/27/23 10:30 Urine Bacteria None Seen /HPF (None Seen) 10/27/23 10:30 Urine Culture Comments NOT INDICATED 10/27/23 10:30 Nasal Adenovirus (PCR) NOT DETECTED 10/27/23 01:22 Nasal B. parapertussis DNA (PCR) NOT DETECTED 10/27/23 01:22 Nasal Coronavir 229E PCR NOT DETECTED 10/27/23 01:22 Nasal Coronavir HKU1 PCR NOT DETECTED 10/27/23 01:22 Nasal Coronavir NL63 PCR NOT DETECTED 10/27/23 01:22 Nasal Coronavir OC43 PCR NOT DETECTED 10/27/23 01:22 Nasal Enterovir/Rhinovir PCR NOT DETECTED 10/27/23 01:22 Nasal Influenza B PCR NOT DETECTED 10/27/23 01:22 Nasal Influenza A PCR NOT DETECTED 10/27/23 01:22 Nasal Parainfluen 1 PCR NOT DETECTED 10/27/23 01:22 Nasal Parainfluen 2 PCR NOT DETECTED 10/27/23 01:22 Nasal Parainfluen 3 PCR NOT DETECTED 10/27/23 01:22 Nasal Parainfluen 4 PCR NOT DETECTED 10/27/23 01:22 Nasal RSV (PCR) NOT DETECTED 10/27/23 01:22 Nasal B.pertussis DNA PCR NOT DETECTED 10/27/23 01:22 Nasal C.pneumoniae (PCR) NOT DETECTED 10/27/23 01:22 Yobani Human Metapneumo PCR NOT DETECTED 10/27/23 01:22 Nasal M.pneumoniae (PCR) NOT DETECTED 10/27/23 01:22 Nasal SARS-CoV-2 (PCR) NOT DETECTED 10/27/23 01:22 Gastric Fluid pH 5.0 10/27/23 02:00 Gastric Occult Blood POSITIVE (Negative) 10/27/23 02:00 Sepsis Event Note (H) - Evaluation Current Stage of Sepsis: Septic shock Possible source of Sepsis: positive: Pulmonary - Sepsis Criteria Sepsis Criteria: Recorded Heart Rate greater than 90 bpm, Respiratory: Increasing oxygen requirements, WBC count greater than 12,000 or less than 4000, 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
[2023-10-30] MEDS: LORazepam 2 MG/ML VIAL IVP PRN ×4 (00:50→18:53)
[2023-10-30] MEDS: SODIUM CHLORIDE FLUSH 0.9% 10 ML SYRINGE IVP SCH ×4 (00:50→15:47)
[2023-10-30] MEDS: SCOPOLAMINE PATCH TOP SCH ×2 (02:38→09:15)
[2023-10-30] MEDS: SODIUM CHLORIDE FLUSH 0.9% 10 ML SYRINGE IVP PRN ×3 (04:37→05:48)
[2023-10-30] MEDS: PIPERACILLIN/TAZOBACTAM 3.375 GM in SODIUM CHLORIDE 0.9% MINIBAG 100 ML IV SCH ×2 (04:55→10:49)
[2023-10-30] MEDS: FUROSEMIDE 40 MG/4 ML VIAL IVP SCH (05:37)
[2023-10-30] MEDS: MORPHINE 2 MG/ML CARPUJECT IVP PRN ×3 (05:47→22:13)
[2023-10-30] MEDS: PANTOPRAZOLE 40 MG VIAL IV SCH ×2 (08:08→22:13)
--- NOTE | 2023-10-30 09:37 | XRAY Report ---
PROCEDURE: Chest 1 View X-Ray INDICATIONS: PNA and CHF, F/U TECHNIQUE: One view of the chest was acquired. COMPARISON: 08/27/2023, 03/11/2022 FINDINGS: Surgical changes and devices: None. Lungs and pleura: An incomplete inspiratory result is noted, with low lung volumes and crowding of t he vascular markings. No large pneumothorax or large pleural effusion can be seen. Interstitial type infiltrates can be seen, which are most prominent centrally. These are clearly improved compared to the prior. Mediastinum: Mediastinal contours appear normal. Heart size is mildly enlarged. Bones and chest wall: No suspicious bony lesions. Age-appropriate degenerative changes are seen. Overlying soft tissues appear unremarkable. IMPRESSION: Improving interstitial infiltrates are seen, which are consistent with resolving pulmonary edema. Reviewed by: Santosh Mcelroy MD on 10/30/2023 8:36 AM [facility] Approved by: Santosh Mcelroy MD on 10/30/2023 8:36 AM [facility] Station ID: [id number]
[2023-10-30 09:42] LABS: BASOPHILS % (AUTO) 0.2 %; EOSINOPHILS # (AUTO) 0.3 10^3/uL (0.0-0.7); EOSINOPHILS % (AUTO) 1.6 %; LYMPHOCYTES # (AUTO) 0.5 10^3/uL (1.5-3.5); LYMPHOCYTES % (AUTO) 3.1 %; MEAN CORPUSCULAR HEMOGLOBIN 30.2 pg (27.0-31.0); MEAN CORPUSCULAR HGB CONC 30.4 g/dL (32.0-36.0); MEAN CORPUSCULAR VOLUME 99.1 fL (80.0-94.0); MEAN PLATELET VOLUME 12.6 fL (7.4-11.4); MONOCYTES # (AUTO) 1.5 10^3/uL (0.0-1.0); NEUTROPHILS # (AUTO) 14.2 10^3/uL (1.5-6.6); NEUTROPHILS % (AUTO) 85.5 %; PLT - PLATELET COUNT 174 10^3/uL (130-450); RED BLOOD COUNT 4.64 10^6/uL (4.70-6.10); WHITE BLOOD COUNT 16.6 x10^3/uL (4.8-10.8)
[2023-10-30 10:09] LABS: ALBUMIN 3.7 g/dL (3.2-5.5)
[2023-10-30 11:01] LABS: ALBUMIN/GLOBULIN RATIO 0.9 (1.0-2.2); ALKALINE PHOSPHATASE 63 IU/L (42-121); ALT ALANINE AMINOTRANSFERASE 11 IU/L (10-60); AST ASPARTATE AMINOTRANSFERASE 16 IU/L (10-42); BILIRUBIN,TOTAL 1.3 mg/dL (0.2-1.0); BUN - BLOOD UREA NITROGEN 92 mg/dL (6-20); CALCIUM 10.6 mg/dL (8.5-10.3); CARBON DIOXIDE - CO2 > 45 mmol/L (21-32); CHLORIDE 105 mmol/L (101-111); CREATININE 1.9 mg/dL (0.6-1.3); GFR - MDRD 34 (>89); GLUCOSE 121 mg/dL (74-104); POTASSIUM 2.2 mmol/L (3.5-4.5); SODIUM 163 mmol/L (135-145); TOTAL PROTEIN 7.8 g/dL (6.4-8.9)
--- NOTE | 2023-10-30 19:22 | PROVIDER PROGRESS NOTE ---
Assessment/Plan - Problem List (1) AMS (altered mental status) Assessment/Plan: He had more confusion on top of his already preceding confusion from dementia. Since 10/28, he is also more obtunded and not responding to his surrounding I discussed the poor prognosis with his combination of problems, with the family at bedside, and proposed comfort measures and the family agreed to that and Comfort package was ordered. He had labs and a CXR done today at request of family and has worsening ALEAH, worse hypernatremia, but CXR shows no further pneumonia and less pulm edema. Some of his AMS is from worsening uremia, I explained this to daughter at bedside today. A swallow eval was done today and he cannot handle a spoonful of water Plan: I will stop iv antibx I will decrease iv Lasix from BID to daily Cont Comfort Measures status (2) Comfort measures only status Conclusion/Plan: Plan: Comfort package was ordered and support provided to family Today ST gave advice about oral comfort The family wanted him to go back to his facility to there under hospice care. Hospice was able to take him under their care 10/28, but on 10/28 he could not be discharged on 15 L/min O2 (must be on 6L/min or less, per Hospice). We then weaned his O2 down to 6 L/min as of 10/29, but on 10/29 Hospice did not have the staff to put him under their care. And he cannot go back to his facility on a Sat (today), or on a Sun (due to the facility rules), so he will remain here to pass away. He is actively dieing. (3) ALEAH (acute kidney injury) Conclusion/Plan: His last creatinine was done 2 years ago and was normal. but in the interim there might have been some CKD that are unaware of. The current ALEAH is likely from renal hypoperfusion or may be from cardiorenal syndrome. He had labs done today at request of family and has worsening ALEAH. Some of his AMS is from Uremia, I explained this to daughter at bedside today Plan: Will decrease IV Lasix from BID to daily, for respiratory distress from CHF (4) CHF (congestive heart failure) Conclusion/Plan: Improving CHF is reported on chest x-ray and is present on exam with rales and leg edema. The son-in-law at bedside also reports he has a history of CHF. Echo was ordered to evaluate LVEF, but he cannot swallow cardiac meds and is now on Comfort care Plan: I will cancel the Echo Will continue daily IV Lasix Cont morphine IV as needed for dyspnea Remain off telemetry and do VS just daily (5) Upper GI bleed Conclusion/Plan: The vomitus was tested and came back heme positive Plan: I started him on IV twice daily Protonix (6) Hypokalemia Conclusion/Plan: Despite having significant ALEAH, his serum potassium is very low. This suggests he has had very poor oral intake for longer than a day He had labs done today at request of family and K is 2.2, despite worsening ALEAH Plan: No further labs, since he is on comfort care (7) Dementia Conclusion/Plan: Family was able to give me a description of his first stroke being in 1996 and he got "the clot busting medicine". He was then put on Coumadin. His then took him off his Coumadin to use herbs. 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 His baseline is that he is usually able to do ADLs and feed himself. His ac tivity is only going from bed to chair at the [place]. He initially does not recognize family members until they are in a cnversation, then he recognizes who they are Plan: He is still unable to swallow any of his p.o. meds (8) Septic shock Conclusion/Plan: RESOLVED We were unable to give aggressive IV fluids despite a high lactic acid level, because he is in pulmonary edema. He had to get Lasix and the combination of the Lasix plus arising lactic acid level suggest he is in septic shock I discussed the poor prognosis that his combination of problems, with the family at bedside and I also proposed comfort measures and the family agreed to that. The scopolamine patch has helped his upper airway gurgling. Plan: IV antibx will be stopped with resolution of PNA by CXR today and no further vomiting or any cough Cont scopolamine patch to decrease the upper airway rattling Continue with supplemental O2 Cont comfort package (9) Aspiration into airway Conclusion/Plan: RESOLVED He was witnessed to aspirate vomitus several times. He is desaturating. A repeat chest x-ray was done that shows infiltrate and volume overload Plan: Will stop IV antibiotics Give supplemental O2. Qualifiers: Encounter type: initial encounter Qualified Code(s): T17.908A - Unspecified foreign body in respiratory tract, part unspecified causing other injury, initial encounter - Current Meds Current Meds: Current Medications Generic Name Dose Route Start Last Admin Trade Name Freq PRN Reason Stop Dose Admin Lorazepam 1 mg 10/28/23 19:15 10/30/23 18:53 Lorazepam 2 Mg/Ml Vial IVP 1 mg Q2H PRN Administration Anxiety Morphine Sulfate 2 mg 10/27/23 09:02 10/30/23 15:47 Morphine 2 Mg/Ml Carpuject IVP 2 mg Q2HR PRN Administration Dyspnea Pantoprazole Sodium 40 mg 10/27/23 10:28 10/30/23 08:08 Pantoprazole 40 Mg Vial IV 40 mg BID RODDY Administration Scopolamine HBr 1 patch 10/27/23 16:00 10/30/23 09:15 Scopolamine Patch TOP 1 patch Q3D RODDY Administration Sodium Chloride 10 ml 10/27/23 04:04 10/30/23 05:48 Sodium Chloride Flush 0.9% 10 Ml Syringe IVP 10 ml PRN PRN Administration NEEDED PER PROVIDER ORDERS Sodium Chloride 10 ml 10/27/23 09:00 10/30/23 15:47 Sodium Chloride Flush 0.9% 10 Ml Syringe IVP 10 ml 0100,0900,1700 RODDY Administration - Lab Result Fish Bone Diagrams: 10/30/23 09:31 10/30/23 09:31 - Additional Planning My Orders: My Active Orders 10/30/23 Clinical Swallow Evaluation [ST] Routine 10/31/23 09:00 FUROSEMIDE INJ 40mg VIAL [LASIX INJ 40 mg VIAL] 40 mg IVP DAILY Subjective - Subjective Patient Reports: Resting Comfortably Nursing Reports: Other (Aweakens and grimaces, tries to sit up for 2 sec, opens eyes briefly) Objective Vital Signs: Vital Signs - 24 hr 10/29/23 10/30/23 10/30/23 19:10 00:50 04:35 Temperature Heart Rate [ Brachial] Respiratory 16 16 Rate Blood Pressure [Right Brachial artery] O2 Saturation 93 93 If not protocol 10 6 6 : Oxygen Flow, liters/minute 10/30/23 08:02 Temperature 37.0 C Heart Rate [ 127 H Brachial] Respiratory 24 Rate Blood Pressure 138/88 H [Right Brachial artery] O2 Saturation 97 If not protocol 6 : Oxygen Flow, liters/minute Oxygen O2 Source Nasal cannula Oxygen Flow Rate 5 I&O (Last 24 Hrs): Intake and Output Totals x24h 10/28/23 10/29/23 10/30/23 23:59 23:59 23:59 Intake Total 400 400 200 Output Total 3375 2625 1974 Balance -9399 -9459 -1085 General: Other (Obtunded) HEENT: Other (Dry mucosa) Neuro: Other (Obtunded, moves all extrem) Cardiovascular: Regular rate, No murmurs Respiratory: No respiratory distress, Breath sounds nml Abdomen: Soft, No tenderness Extremities: No clubbing, No edema, Other (skin tenting present) - Results Results: Laboratory Results WBC 16.6 x10^3/uL (4.8-10.8) H 10/30/23 09:31 RBC 4.64 10^6/uL (4.70-6.10) L 10/30/23 09:31 Hgb 14.0 g/dL (14.0-18.0) 10/30/23 09:31 Hct 46.0 % (42.0-52.0) 10/30/23 09:31 MCV 99.1 fL (80.0-94.0) H 10/30/23 09:31 MCH 30.2 pg (27.0-31.0) 10/30/23 09:31 MCHC 30.4 g/dL (32.0-36.0) L 10/30/23 09:31 RDW 14.0 % (12.0-15.0) 10/30/23 09:31 Plt Count 174 10^3/uL (130-450) 10/30/23 09:31 MPV 12.6 fL (7.4-11.4) H 10/30/23 09:31 Neut # (Auto) 14.2 10^3/uL (1.5-6.6) H 10/30/23 09:31 Lymph # (Auto) 0.5 10^3/uL (1.5-3.5) L 10/30/23 09:31 Butts # (Auto) 1.5 10^3/uL (0.0-1.0) H 10/30/23 09:31 Eos # (Auto) 0.3 10^3/uL (0.0-0.7) 10/30/23 09:31 Baso # (Auto) 0.0 10^3/uL (0.0-0.1) 10/30/23 09:31 Absolute Nucleated RBC 0.00 x10^3/uL 10/30/23 09:31 Total Counted 100 10/27/23 09:34 Band Neuts % (Manual) 20 % (0-10) H 10/27/23 09:34 Abnorm Lymph % (Manual) 0 % 10/27/23 09:34 Metamyelocytes % 2 % (-0) H 10/27/23 09:34 Myelocytes % 4 % (-0) H 10/27/23 09:34 Nucleated RBC % 0.0 /100WBC 10/30/23 09:31 Neutrophils # (Manual) 11.2 10^3/uL (1.5-6.6) H 10/27/23 09:34 Lymphocytes # (Manual) 0.3 10^3/uL (1.5-3.5) L 10/27/23 09:34 Monocytes # (Manual) 0.5 10^3/uL (0.0-1.0) 10/27/23 09:34 Eosinophils # (Manual) 0.1 10^3/uL (0-0.7) 10/27/23 09:34 Basophils # (Manual) 0.0 10^3/uL (0-0.1) 10/27/23 09:34 Differential Comment MANUAL DIFFERENTIAL 10/27/23 09:34 WBC Morphology NORMAL APPEARANCE (NORMAL) 10/27/23 09:34 Platelet Estimate NORMAL (130-450,000) (NORMAL) 10/27/23 09:34 Platelet Morphology NORMAL APPEARANCE (NORMAL) 10/27/23 09:34 RBC Morph Micro Appear NORMAL APPEARANCE (NORMAL) 10/27/23 09:34 PT 31.5 secs (9.9-12.6) H 10/27/23 01:25 INR 3.1 (0.8-1.2) H 10/27/23 01:25 Bld Gas Analysis Time 0134 10/27/23 01:30 Sample Site LEFT RADIAL 10/27/23 01:30 ABG pH 7.52 (7.35-7.45) H 10/27/23 01:30 ABG pCO2 44 mmHg (34-45) 10/27/23 01:30 ABG pO2 49 mmHg (80-100) L 10/27/23 01:30 ABG HCO3 34.6 mmol/L (22.0-26.0) H 10/27/23 01:30 ABG Total CO2 36.0 MMOL/L (21.0-29.0) H 10/27/23 01:30 ABG O2 Saturation 87 % (94-98) L* 10/27/23 01:30 ABG Base Excess 10.4 mmol/L (-2.0-3.0) H 10/27/23 01:30 Huey Test POSITIVE 10/27/23 01:30 O2 Delivery Device NASAL CANNULA 10/27/23 01:30 O2 Liters/Min 4.00 LPM 10/27/23 01:30 FiO2 36.00 10/27/23 01:30 Sodium 163 mmol/L (135-145) H* 10/30/23 09:31 Potassium 2.2 mmol/L (3.5-4.5) L* 10/30/23 09:31 Chloride 105 mmol/L (101-111) 10/30/23 09:31 Carbon Dioxide > 45 mmol/L (21-32) H* 10/30/23 09:31 Anion Gap TNP 10/30/23 09:31 BUN 92 mg/dL (6-20) H* 10/30/23 09:31 Creatinine 1.9 mg/dL (0.6-1.3) H 10/30/23 09:31 Estimated GFR (MDRD) 34 (>89) L 10/30/23 09:31 Glucose 121 mg/dL (74-104) H 10/30/23 09:31 POC Whole Bld Glucose 132 mg/dL (70 - 100) H 10/27/23 10:48 Lactic Acid 1.6 mmol/L (0.5-2.2) 10/30/23 09:31 Calcium 10.6 mg/dL (8.5-10.3) H 10/30/23 09:31 Magnesium 2.0 mg/dL (1.7-2.3) 10/27/23 09:34 Total Bilirubin 1.3 mg/dL (0.2-1.0) H 10/30/23 09:31 AST 16 IU/L (10-42) 10/30/23 09:31 ALT 11 IU/L (10-60) 10/30/23 09:31 Alkaline Phosphatase 63 IU/L (42-121) 10/30/23 09:31 Troponin I High Sens 57.3 ng/L (2.3-19.7) H* 10/27/23 11:59 C-Reactive Protein 9.7 mg/dL (<0.5) H 10/27/23 09:34 B-Natriuretic Peptide 125 pg/mL (5-100) H 10/27/23 09:34 Total Protein 7.8 g/dL (6.4-8.9) 10/30/23 09:31 Albumin 3.7 g/dL (3.2-5.5) 10/30/23 09:31 Globulin 4.1 g/dL (2.1-4.2) 10/30/23 09:31 Albumin/Globulin Ratio 0.9 (1.0-2.2) L 10/30/23 09:31 Lipase 19 U/L (11-82) 10/27/23 01:15 Urine Color YELLOW 10/27/23 10:30 Urine Clarity CLEAR (CLEAR) 10/27/23 10:30 Urine pH 5.5 PH (5.0-7.5) 10/27/23 10:30 Ur Specific [place] 1.025 (1.002-1.030) 10/27/23 10:30 Urine Protein NEGATIVE mg/dL (NEGATIVE) 10/27/23 10:30 Urine Glucose (UA) NEGATIVE mg/dL (NEGATIVE) 10/27/23 10:30 Urine Ketones NEGATIVE mg/dL (NEGATIVE) 10/27/23 10:30 Urine Occult Blood NEGATIVE (NEGATIVE) 10/27/23 10:30 Urine Nitrite NEGATIVE (NEGATIVE) 10/27/23 10:30 Urine Bilirubin NEGATIVE (NEGATIVE) 10/27/23 10:30 Urine Urobilinogen 0.2 (NORMAL) E.U./dL (NORMAL) 10/27/23 10:30 Ur Leukocyte Esterase NEGATIVE (NEGATIVE) 10/27/23 10:30 Urine RBC 0-5 /HPF (0-5) 10/27/23 10:30 Urine WBC 0-3 /HPF (0-3) 10/27/23 10:30 Ur Squamous Epith Cells RARE Squamous (<= Few) 10/27/23 10:30 Urine Bacteria None Seen /HPF (None Seen) 10/27/23 10:30 Urine Culture Comments NOT INDICATED 10/27/23 10:30 Nasal Adenovirus (PCR) NOT DETECTED 10/27/23 01:22 Nasal B. parapertussis DNA (PCR) NOT DETECTED 10/27/23 01:22 Nasal Coronavir 229E PCR NOT DETECTED 10/27/23 01:22 Nasal Coronavir HKU1 PCR NOT DETECTED 10/27/23 01:22 Nasal Coronavir NL63 PCR NOT DETECTED 10/27/23 01:22 Nasal Coronavir OC43 PCR NOT DETECTED 10/27/23 01:22 Nasal Enterovir/Rhinovir PCR NOT DETECTED 10/27/23 01:22 Nasal Influenza B PCR NOT DETECTED 10/27/23 01:22 Nasal Influenza A PCR NOT DETECTED 10/27/23 01:22 Nasal Parainfluen 1 PCR NOT DETECTED 10/27/23 01:22 Nasal Parainfluen 2 PCR NOT DETECTED 10/27/23 01:22 Nasal Parainfluen 3 PCR NOT DETECTED 10/27/23 01:22 Nasal Parainfluen 4 PCR NOT DETECTED 10/27/23 01:22 Nasal RSV (PCR) NOT DETECTED 10/27/23 01:22 Nasal B.pertussis DNA PCR NOT DETECTED 10/27/23 01:22 Nasal C.pneumoniae (PCR) NOT DETECTED 10/27/23 01:22 Yobani Human Metapneumo PCR NOT DETECTED 10/27/23 01:22 Nasal M.pneumoniae (PCR) NOT DETECTED 10/27/23 01:22 Nasal SARS-CoV-2 (PCR) NOT DETECTED 10/27/23 01:22 Gastric Fluid pH 5.0 10/27/23 02:00 Gastric Occult Blood POSITIVE (Negative) 10/27/23 02:00 Sepsis Event Note (H) - Evaluation Current Stage of Sepsis: Septic shock Possible source of Sepsis: positive: Pulmonary - Sepsis Criteria Sepsis Criteria: Recorded Heart Rate greater than 90 bpm, Respiratory: Increasing oxygen requirements, WBC count greater than 12,000 or less than 4000, IT APPLICATIONS ANALYST: altered consciousness (unrelated to primary neuro pathology), Metabolic: lactate > 2 mmol/L
[2023-10-31] MEDS: SODIUM CHLORIDE FLUSH 0.9% 10 ML SYRINGE IVP SCH ×3 (00:21→17:08)
[2023-10-31] MEDS: FUROSEMIDE 40 MG/4 ML VIAL IVP SCH (09:14)
[2023-10-31] MEDS: PANTOPRAZOLE 40 MG VIAL IV SCH ×2 (09:14→21:24)
[2023-10-31] MEDS: MORPHINE 2 MG/ML CARPUJECT IVP PRN ×2 (09:47→12:17)
[2023-10-31] MEDS: LORazepam 2 MG/ML VIAL IVP PRN ×3 (11:15→19:57)
--- NOTE | 2023-10-31 15:20 | PROVIDER PROGRESS NOTE ---
Assessment/Plan - Problem List (1) AMS (altered mental status) Assessment/Plan: He presented with more confusion on top of his already preceding confusion from dementia. Since 10/28, he is more obtunded and not responding to his surrounding I discussed the poor prognosis with his combination of problems, with the family at bedside, and proposed comfort measures and the family agreed to that and Comfort package was ordered. He had labs and a CXR done yesterday 10/30, at request of family and has worse catalina ALEAH, worse hypernatremia, but CXR shows no further pneumonia and less pulm edema. Some of his AMS is from worsening uremia, I explained this to daughter and son-in-law at bedside A swallow eval was done 10/30 and he cannot handle a spoonful of water Plan: Empiric iv antibx were stopped His iv Lasix was decreased from BID to daily Cont Comfort Measures status (2) Comfort measures only status Conclusion/Plan: Plan: Comfort package was ordered and support provided to family ST gave advice about oral comfort on 10/30 The family has wanted him to go back to his facility to there under hospice care. Hospice was able to take him under their care 10/28, but on 10/28 he could not be discharged on 15 L/min O2 (must be on 6L/min or less, per Hospice). We then weaned his O2 down to 6 L/min as of 10/29, but on 10/29 Hospice did not have the staff to put him under their care. And he cannot go back to his facility on a Sat or on a Sun (today) due to the facility rules, so he will remain here to pass away or may go there on 11/01. (3) ALEAH (acute kidney injury) Conclusion/Plan: His last creatinine was done 2 years ago and was normal. but in the interim there might have been some CKD that are unaware of. The current ALEAH is likely from renal hypoperfusion or may be from cardiorenal syndrome. He had labs done 10/30 at request of family and has worsening ALEAH. Some of his AMS is from Uremia, I explained this to daughter and son-in-law at bedside Plan: I decreased IV Lasix from BID to daily, being given for respiratory distress from CHF (4) CHF (congestive heart failure) Conclusion/Plan: Improving CHF is reported on chest x-ray and is present on exam with rales and leg edema. The son-in-law at bedside also reports he has a history of CHF. Echo was ordered to evaluate LVEF, but he cannot swallow cardiac meds and is now on Comfort care Plan: I will cancel the Echo Will continue daily IV Lasix while he is here Cont morphine IV as needed for dyspnea Remain off telemetry and do VS just daily (5) Upper GI bleed Conclusion/Plan: The vomitus was tested and came back heme positive Plan: I started him on IV twice daily Protonix, cont while here (6) Hypokalemia Conclusion/Plan: Despite having significant ALEAH, his serum potassium is very low. This suggests he has had very poor oral intake for longer than a day He had labs done10/30 at request of family and K was 2.2, despite worsening ALEAH Plan: No further labs will be drawn, since he is on comfort care (7) Dementia Conclusion/Plan: Family was able to give me a description of his first stroke being in 1996 and he got "the clot busting medicine". He was then put on Coumadin. His then took him off his Coumadin to use herbs. 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 His baseline is that he is usually able to do ADLs and feed himself. His activity is only going from bed to chair at the SD. He initially does not recognize family members until they are in a cnversation, then he recognizes who they are Plan: He is unable to swallow any of his p.o. meds (8) Septic shock Conclusion/Plan: RESOLVED We were unable to give aggressive IV fluids despite a high lactic acid level, because he is in pulmonary edema. He had to get Lasix and the combination of the Lasix plus arising lactic acid level suggest he is in septic shock I discussed the poor prognosis that his combination of problems, with the family at bedside and I also proposed comfort measures and the family agreed to that. T he scopolamine patch has helped his upper airway gurgling. Plan: IV antibx will be stopped with resolution of PNA by CXR done 10/30 and no further vomiting or any cough Cont scopolamine patch to decrease the upper airway rattling Continue with supplemental O2 Cont comfort package (9) Aspiration into airway Conclusion/Plan: RESOLVED He was witnessed to aspirate vomitus several times. He is desaturating. A repeat chest x-ray was done that showed infiltrate and volume overload Plan: Will stop IV antibiotics Give supplemental O2. - Current Meds Current Meds: Current Medications Generic Name Dose Route Start Last Admin Trade Name Freq PRN Reason Stop Dose Admin Furosemide 40 mg 10/31/23 09:00 10/31/23 09:14 Furosemide 40 Mg/4 Ml Vial IVP 40 mg DAILY RODDY Administration Lorazepam 1 mg 10/28/23 19:15 10/31/23 13:49 Lorazepam 2 Mg/Ml Vial IVP 1 mg Q2H PRN Administration Anxiety Morphine Sulfate 2 mg 10/27/23 09:02 10/31/23 12:17 Morphine 2 Mg/Ml Carpuject IVP 2 mg Q2HR PRN Administration Dyspnea Pantoprazole Sodium 40 mg 10/27/23 10:28 10/31/23 09:14 Pantoprazole 40 Mg Vial IV 40 mg BID RODDY Administration Scopolamine HBr 1 patch 10/27/23 16:00 10/30/23 09:15 Scopolamine Patch TOP 1 patch Q3D RODDY Administration Sodium Chloride 10 ml 10/27/23 04:04 10/30/23 05:48 Sodium Chloride Flush 0.9% 10 Ml Syringe IVP 10 ml PRN PRN Administration NEEDED PER PROVIDER ORDERS Sodium Chloride 10 ml 10/27/23 09:00 10/31/23 09:14 Sodium Chloride Flush 0.9% 10 Ml Syringe IVP 10 ml 0100,0900,1700 RODDY Administration - Lab Result Fish Bone Diagrams: 10/30/23 09:31 10/30/23 09:31 - Additional Planning My Orders: My Active Orders 10/31/23 09:00 FUROSEMIDE INJ 40mg VIAL [LASIX INJ 40 mg VIAL] 40 mg IVP DAILY Subjective - Subjective Nursing Reports: Other (Withdraws to pain, still lifts his head and pulls at bedsheets but does not open his eyes, does not speak, is unable to swallow) Objective Vital Signs: Vital Signs - 24 hr 10/30/23 10/31/23 19:00 08:28 Temperature 36.7 C Heart Rate [ 108 H Brachial] Respiratory 22 Rate Blood Pressure 158/109 H [Right Brachial artery] O2 Saturation 95 If not protocol 6 6 : Oxygen Flow, liters/minute Oxygen O2 Source Nasal cannula Oxygen Flow Rate 5 I&O (Last 24 Hrs): Intake and Output Totals x24h 10/29/23 10/30/23 10/31/23 23:59 23:59 23:59 Intake Total 400 200 Output Total 2625 4112 1355 Balance -2225 -2225 -1350 General: Other (Lethargic) HEENT: Other (dry jucosa, sunken eyes, has on O2 via n.c.) Neck: Supple Neuro: Other (Lethargic, moves head and pulls at bedsheets) Cardiovascular: No murmurs Respiratory: No respiratory distress Abdomen: Soft Extremities: No edema, No tenderness/swelling - Results Results: Laboratory Results WBC 16.6 x10^3/uL (4.8-10.8) H 10/30/23 09:31 RBC 4.64 10^6/uL (4.70-6.10) L 10/30/23 09:31 Hgb 14.0 g/dL (14.0-18.0) 10/30/23 09:31 Hct 46.0 % (42.0-52.0) 10/30/23 09:31 MCV 99.1 fL (80.0-94.0) H 10/30/23 09:31 MCH 30.2 pg (27.0-31.0) 10/30/23 09:31 MCHC 30.4 g/dL (32.0-36.0) L 10/30/23 09:31 RDW 14.0 % (12.0-15.0) 10/30/23 09:31 Plt Count 174 10^3/uL (130-450) 10/30/23 09:31 MPV 12.6 fL (7.4-11.4) H 10/30/23 09:31 Neut # (Auto) 14.2 10^3/uL (1.5-6.6) H 10/30/23 09:31 Lymph # (Auto) 0.5 10^3/uL (1.5-3.5) L 10/30/23 09:31 [place] # (Auto) 1.5 10^3/uL (0.0-1.0) H 10/30/23 09:31 Eos # (Auto) 0.3 10^3/uL (0.0-0.7) 10/30/23 09:31 Baso # (Auto) 0.0 10^3/uL (0.0-0.1) 10/30/23 09:31 Absolute Nucleated RBC 0.00 x10^3/uL 10/30/23 09:31 Total Counted 100 10/27/23 09:34 Band Neuts % (Manual) 20 % (0-10) H 10/27/23 09:34 Abnorm Lymph % (Manual) 0 % 10/27/23 09:34 Metamyelocytes % 2 % (-0) H 10/27/23 09:34 Myelocytes % 4 % (-0) H 10/27/23 09:34 Nucleated RBC % 0.0 /100WBC 10/30/23 09:31 Neutrophils # (Manual) 11.2 10^3/uL (1.5-6.6) H 10/27/23 09:34 Lymphocytes # (Manual) 0.3 10^3/uL (1.5-3.5) L 10/27/23 09:34 Monocytes # (Manual) 0.5 10^3/uL (0.0-1.0) 10/27/23 09:34 Eosinophils # (Manual) 0.1 10^3/uL (0-0.7) 10/27/23 09:34 Basophils # (Manual) 0.0 10^3/uL (0-0.1) 10/27/23 09:34 Differential Comment MANUAL DIFFERENTIAL 10/27/23 09:34 WBC Morphology NORMAL APPEARANCE (NORMAL) 10/27/23 09:34 Platelet Estimate NORMAL (130-450,000) (NORMAL) 10/27/23 09:34 Platelet Morphology NORMAL APPEARANCE (NORMAL) 10/27/23 09:34 RBC Morph Micro Appear NORMAL APPEARANCE (NORMAL) 10/27/23 09:34 PT 31.5 secs (9.9-12.6) H 10/27/23 01:25 INR 3.1 (0.8-1.2) H 10/27/23 01:25 Bld Gas Analysis Time 0134 10/27/23 01:30 Sample Site LEFT RADIAL 10/27/23 01:30 ABG pH 7.52 (7.35-7.45) H 10/27/23 01:30 ABG pCO2 44 mmHg (34-45) 10/27/23 01:30 ABG pO2 49 mmHg (80-100) L 10/27/23 01:30 ABG HCO3 34.6 mmol/L (22.0-26.0) H 10/27/23 01:30 ABG Total CO2 36.0 MMOL/L (21.0-29.0) H 10/27/23 01:30 ABG O2 Saturation 87 % (94-98) L* 10/27/23 01:30 ABG Base Excess 10.4 mmol/L (-2.0-3.0) H 10/27/23 01:30 Huey Test POSITIVE 10/27/23 01:30 O2 Delivery Device NASAL CANNULA 10/27/23 01:30 O2 Liters/Min 4.00 LPM 10/27/23 01:30 FiO2 36.00 10/27/23 01:30 Sodium 163 mmol/L (135-145) H* 10/30/23 09:31 Potassium 2.2 mmol/L (3.5-4.5) L* 10/30/23 09:31 Chloride 105 mmol/L (101-111) 10/30/23 09:31 Carbon Dioxide > 45 mmol/L (21-32) H* 10/30/23 09:31 Anion Gap TNP 10/30/23 09:31 BUN 92 mg/dL (6-20) H* 10/30/23 09:31 Creatinine 1.9 mg/dL (0.6-1.3) H 10/30/23 09:31 Estimated GFR (MDRD) 34 (>89) L 10/30/23 09:31 Glucose 121 mg/dL (74-104) H 10/30/23 09:31 POC Whole Bld Glucose 132 mg/dL (70 - 100) H 10/27/23 10:48 Lactic Acid 1.6 mmol/L (0.5-2.2) 10/30/23 09:31 Calcium 10.6 mg/dL (8.5-10.3) H 10/30/23 09:31 Magnesium 2.0 mg/dL (1.7-2.3) 10/27/23 09:34 Total Bilirubin 1.3 mg/dL (0.2-1.0) H 10/30/23 09:31 AST 16 IU/L (10-42) 10/30/23 09:31 ALT 11 IU/L (10-60) 10/30/23 09:31 Alkaline Phosphatase 63 IU/L (42-121) 10/30/23 09:31 Troponin I High Sens 57.3 ng/L (2.3-19.7) H* 10/27/23 11:59 C-Reactive Protein 9.7 mg/dL (<0.5) H 10/27/23 09:34 B-Natriuretic Peptide 125 pg/mL (5-100) H 10/27/23 09:34 Total Protein 7.8 g/dL (6.4-8.9) 10/30/23 09:31 Albumin 3.7 g/dL (3.2-5.5) 10/30/23 09:31 Globulin 4.1 g/dL (2.1-4.2) 10/30/23 09:31 Albumin/Globulin Ratio 0.9 (1.0-2.2) L 10/30/23 09:31 Lipase 19 U/L (11-82) 10/27/23 01:15 Urine Color YELLOW 10/27/23 10:30 Urine Clarity CLEAR (CLEAR) 10/27/23 10:30 Urine pH 5.5 PH (5.0-7.5) 10/27/23 10:30 Ur Specific [place] 1.025 (1.002-1.030) 10/27/23 10:30 Urine Protein NEGATIVE mg/dL (NEGATIVE) 10/27/23 10:30 Urine Glucose (UA) NEGATIVE mg/dL (NEGATIVE) 10/27/23 10:30 Urine Ketones NEGATIVE mg/dL (NEGATIVE) 10/27/23 10:30 Urine Occult Blood NEGATIVE (NEGATIVE) 10/27/23 10:30 Urine Nitrite NEGATIVE (NEGATIVE) 10/27/23 10:30 Urine Bilirubin NEGATIVE (NEGATIVE) 10/27/23 10:30 Urine Urobilinogen 0.2 (NORMAL) E.U./dL (NORMAL) 10/27/23 10:30 Ur Leukocyte Esterase NEGATIVE (NEGATIVE) 10/27/23 10:30 Urine RBC 0-5 /HPF (0-5) 10/27/23 10:30 Urine WBC 0-3 /HPF (0-3) 10/27/23 10:30 Ur Squamous Epith Cells RARE Squamous (<= Few) 10/27/23 10:30 Urine Bacteria None Seen /HPF (None Seen) 10/27/23 10:30 Urine Culture Comments NOT INDICATED 10/27/23 10:30 Nasal Adenovirus (PCR) NOT DETECTED 10/27/23 01:22 Nasal B. parapertussis DNA (PCR) NOT DETECTED 10/27/23 01:22 Nasal Coronavir 229E PCR NOT DETECTED 10/27/23 01:22 Nasal Coronavir HKU1 PCR NOT DETECTED 10/27/23 01:22 Nasal Coronavir NL63 PCR NOT DETECTED 10/27/23 01:22 Nasal Coronavir OC43 PCR NOT DETECTED 10/27/23 01:22 Nasal Enterovir/Rhinovir PCR NOT DETECTED 10/27/23 01:22 Nasal Influenza B PCR NOT DETECTED 10/27/23 01:22 Nasal Influenza A PCR NOT DETECTED 10/27/23 01:22 Nasal Parainfluen 1 PCR NOT DETECTED 10/27/23 01:22 Nasal Parainfluen 2 PCR NOT DETECTED 10/27/23 01:22 Nasal Parainfluen 3 PCR NOT DETECTED 10/27/23 01:22 Nasal Parainfluen 4 PCR NOT DETECTED 10/27/23 01:22 Nasal RSV (PCR) NOT DETECTED 10/27/23 01:22 Nasal B.pertussis DNA PCR NOT DETECTED 10/27/23 01:22 Nasal C.pneumoniae (PCR) NOT DETECTED 10/27/23 01:22 Yobani Human Metapneumo PCR NOT DETECTED 10/27/23 01:22 Nasal M.pneumoniae (PCR) NOT DETECTED 10/27/23 01:22 Nasal SARS-CoV-2 (PCR) NOT DETECTED 10/27/23 01:22 Gastric Fluid pH 5.0 10/27/23 02:00 Gastric Occult Blood POSITIVE (Negative) 10/27/23 02:00 Sepsis Event Note (H) - Evaluation Current Stage of Sepsis: Septic shock Possible source of Sepsis: positive: Pulmonary - Sepsis Criteria Sepsis Criteria: Recorded Heart Rate greater than 90 bpm, Respiratory: Increasing oxygen requirements, WBC count greater than 12,000 or less than 4000, CUSTOMER SERVICE SALES CONSULTANT: altered consciousness (unrelated to primary neuro pathology), Metabolic: lactate > 2 mmol/L
[2023-10-31] MEDS: MORPHINE 2 MG/ML CARPUJECT IVP SCH ×2 (17:08→21:24)
[2023-11-01] MEDS: MORPHINE 2 MG/ML CARPUJECT IVP SCH ×4 (01:09→12:58)
[2023-11-01] MEDS: SODIUM CHLORIDE FLUSH 0.9% 10 ML SYRINGE IVP SCH ×2 (01:10→09:09)
[2023-11-01] MEDS: SODIUM CHLORIDE FLUSH 0.9% 10 ML SYRINGE IVP PRN ×2 (05:22→12:59)
[2023-11-01] MEDS: FUROSEMIDE 40 MG/4 ML VIAL IVP SCH (09:08)
[2023-11-01] MEDS: PANTOPRAZOLE 40 MG VIAL IV SCH (09:08)
[2023-11-01 09:26] VITALS: BP 136/85; O2SAT 93
--- NOTE | 2023-11-01 11:59 | Discharge Plan ---
Discharge Plan for SNF / PRISON - Discharge Plan And Transition Orders Problem Reviewed?: Yes Disposition: 50 Hospice/Home DC/Xfer Condition: Serious Allergies and Adverse Reactions: Allergies Allergy/AdvReac Type Severity Reaction Status Date / Time No Known Drug Allergies Allergy Verified 10/27/23 01:31 Health Concerns: Patient admitted with septic shock, aspiration pneumonia, pulmonary edema, acute kidney failure. Comfort measures was requested by family. He has needed supplemental O2. He is being discharged back to his [facility] under the care of Hospice, for end of life. Plan of Treatment: Comfort during end of life. Care Goals: As above. Assessment: The family is in agreement. - SNF / PRISON Transition Orders Admit to (Facility): [facility] Under the care of (Name): Hospice Discharge Diagnosis: (1) AMS (altered mental status) (2) Septic shock (3) Aspiration into airway (4) Hypoxia (5) CHF (congestive heart failure) (6) Upper GI bleed (7) ALEAH (acute kidney injury) (8) Hypokalemia (9) Dementia (10) Comfort measures only status Medicare Certification Statement: Notify PCP of admission and forward orders to primary provider for signature. Other Notification Orders: Call PCP immediately if patient develops dyspnea, chest pain/tightness or edema. Additional Bowel Program Orders: If no BM after 2 days, nurse may give M.O.M. 30ml PO PRN and/or ducolax Supp 1 MD and/or MICKEY 250mg P.O., and/or senna 1-2 tabs PO. On day 3 nurse may give repeat above order until residents constipation is resolved. Medication Orders: PLEASE REFER TO THE DISCHARGE MEDICATION LIST. Insulin Orders?: No - Medications New Prescriptions: LORazepam [Ativan] 0.5 mg PO Q6H PRN #10 tablet PRN Reason: Anxiety Morphine Sulfate [Morphine Sulfate 2mg/ml soln] 5 mg PO Q4H PRN #30 ml PRN Reason: As Needed Per Provider Orders Scopolamine Patch [Transderm-Scop] 1 patch TOP Q3D #3 patch Acetaminophen [Tylenol] 240 mg MD Q6H PRN #10 supp PRN Reason: Mild Pain Or Fever>38c(100.4f) - Diet Type: NPO May have monthly special meal: No
--- NOTE | 2023-11-01 12:54 | DISCHARGE SUMMARY ---
Discharge Summary Admit Date: 10/27/23 Discharge Date: 11/01/23 Discharging Provider: Dr Francisca Huerta Primary Care Provider: SABRINA Brown Code Status: Do Not Attempt Resuscitation Condition at Discharge: Serious Discharge Disposition: 50 Hospice/Home DC/Xfer - HPI History of Present Illness: This is an 78-year-old male with a history of multiple strokes causing dementia, he lives in a [facility] for the last 1-1/2 years. He is on medication for his dementia. The patient became more weak and lethargic and when [facility] staff found he was hypotensive today, an ambulance was called and he was brought to the ER. During transport he was seen to be vomiting. He had repeat episodes of vomiting in the ER and the gastric contents were tested and came back heme positive. He is desaturating. Chest x-ray was read as having a streaky opacity but his exam was consistent with congestive heart failure with rales on exam, and leg edema and he was given IV Lasix. He was also cultured and given a dose of IV antibiotics. The WBC is elevated at 19. No Lactic Acid level was done. His K is 2.1, BUN/creat 79/2.1 (baseline creat is 1.0). The ER provider called the night Telemedicine doctor at 0400 who placed admission orders to [facility] status, but that Telemedicine provider did not meet the patient or do an H&P. I am coming in at 0700, on Day shift and am meeting the patient for an H&P and have just reviewed the chart. The patient is following with his eyes, not answering questions, is mostly asleep, moves all extremities spontaneously and is tachypneic and has audible rales and wheezes from across the room. His first lactic acid level is coming back at 5.3 and blood pressure is dropping, heart rate is increasing, consistent with septic shock. The ER provider's note stated that the family was contacted and the POLST was reviewed. The POLST states he is DNR with goal being comfort care. But the family did want him admitted and hospitalized to manage the current respiratory failure, hypoxia, heart failure and probable pneumonia. - HOSPITAL COURSE Hospital Course: (1) AMS (altered mental status) He presented with more confusion then became obtunded and was not responding to his surroundings, on top of his already preceding confusion from dementia. At this hospitalization, he was nearly comatose the entire time. (2) Septic shock He had a rising lactic acid level suggesting he was in septic shock, probably from aspiration pneumonia. We were unable to give aggressive IV fluids despite a high lactic acid level, because he was in pulmonary edema. He got Lasix and empiric iv antibiotics. (3) Aspiration into airway He was witnessed to aspirate vomitus at admission, several times. He was desaturating. A repeat CXR showed infiltrate and volume overload. He was started on empiric iv antibx. (4) Hypoxia From pulmonary edema and aspiration. With iv antibx and iv Laix, his suppl O2 was weaned down from 15L/min via rebreather mask down to 6L/min by n.c. (5) CHF (congestive heart failure) CXR showed volume overload. He carried a Dx of CHF. (6) Upper GI bleed Vomitus was heme (+) tested in the ER. He was on Protonix iv BID during hospitalization. (7) ALEAH (acute kidney injury) The current ALEAH was likely from renal hypoperfusion or possibly from cardiorenal syndrome. He had labs done 10/30 at request of family and had worsening ALEAH. (8) Hypokalemia We gave minimal K replacement due to ALEAH. (9) Dementia He had multiple strokes and probably had multi-infarct dementia. At his facility, he could feed himself, but no longer recognized family. At this hospitalization, he was nearly comatose the entire time. (10) Comfort measures only status He had a very poor prognosis with his combination of diagnoses whichwas discussed with the family. The family requested we stop aggressive medical management, and a Comfort package was ordered and support provided to family. The family wanted him to go back to his facility to there under hospice care. He was discharged on 11/01/23. - ALLERGIES Allergies/Adverse Reactions: Allergies Allergy/AdvReac Type Severity Reaction Status Date / Time No Known Drug Allergies Allergy Verified 10/27/23 01:31 - MEDICATIONS Home Medications: Ambulatory Orders Medication Instructions Recorded Confirmed Acetaminophen [Tylenol] 240 mg MT Q6H PRN #10 supp 11/01/23 LORazepam [Ativan] 0.5 mg PO Q6H PRN #10 tablet 11/01/23 Morphine Sulfate [Morphine Sulfate 5 mg PO Q4H PRN #30 ml 11/01/23 2mg/ml soln] Scopolamine Patch [Transderm-Scop] 1 patch TOP Q3D #3 patch 11/01/23 - PHYSICAL EXAM AT DISCHARGE General Appearance: positive: Other (Tall thin male, obtunded.) Eyes Bilateral: positive: Other (sunken eyes) ENT: positive: Dry mucous membranes, Other (wearing O2 nasal cannula) Neck: positive: Nml inspection, No JVD Respiratory: positive: No respiratory distress, Breath sounds nml Cardiovascular: positive: No murmur Abdomen: positive: Non-tender, No distention Skin: positive: Dry Extremities: positive: Non-tender, No pedal edema, Other (Muscle wasting) Neurologic/Psychiatric: positive: Other (Obtunded, responds to pain) - LABS Result Diagrams: 10/30/23 09:31 10/30/23 09:31 - DIAGNOSTIC IMAGING Diagnostic Imaging Results: Final report reviewed - SEPSIS Current Stage of Sepsis: Septic shock Possible source of Sepsis: Pulmonary Sepsis Criteria: Recorded Heart Rate greater than 90 bpm, Respiratory: Increasing oxygen requirements, WBC count greater than 12,000 or less than 4000, MUSCULOSKELETAL PHYSIOTHERAPIST: altered consciousness (unrelated to primary neuro pathology), Metabolic: lactate > 2 mmol/L - TIME SPENT Time Spent in Discharge (Minutes): 40
== END 2023-11-01 14:10 | disposition hospice, home (50) | DRG 871 ==
LOC: EDUNIT# → ED 00:58 → MS2 03:58
PROVIDERS: ADMIT Internal Medicine; ATTEND Internal Medicine
DX: A41.9 Sepsis, unspecified organism (principal); J69.0 Pneumonitis due to inhalation of food and vomit; R65.21 Severe sepsis with septic shock; D72.829 Elevated white blood cell count, unspecified; K92.2 Gastrointestinal hemorrhage, unspecified; I10 Essential (primary) hypertension; N17.9 Acute kidney failure, unspecified; G20.A1 Parkinson's disease without dyskinesia, without mention of fluctuations; F02.80 Dementia in other diseases classified elsewhere, unspecified severity, without behavioral disturbance, psychotic disturbance, mood disturbance, and anxiety; R09.02 Hypoxemia; Z66 Do not resuscitate; Z51.5 Encounter for palliative care; I11.0 Hypertensive heart disease with heart failure; I50.9 Heart failure, unspecified; I25.10 Atherosclerotic heart disease of native coronary artery without angina pectoris; R41.82 Altered mental status, unspecified; E87.6 Hypokalemia; I69.319 Unspecified symptoms and signs involving cognitive functions following cerebral infarction; F01.50 Vascular dementia, unspecified severity, without behavioral disturbance, psychotic disturbance, mood disturbance, and anxiety
CPT/HCPCS: 36415; 36600; 71045; 80048; 80053; 81001; 82803; 83605; 83690; 83735; 83880; 84484; 85025; 85610; 86140; 87040; 87070; 87205; 87633; 92610; 93005; 93306; 94640; 96365; 99285; J1815; J2060; J3490; 87086